=== PATIENT | female | born 1945 | race Caucasian/White ===

== ENCOUNTER → 2016-11-24 | Outpatient (CLI) | payer MEDICARE, OTHER ==
[~2016-11-24] MED LIST: ASP81TEC PO; MECL25TA56 PO; MOME15CR17 TP; MULT-608 PO; OMG1KC PO; PRD10T PO; calcium PO
--- OUTSIDE RECORDS SUMMARY | 2016-11-24 08:48 | XMS REPORT | Continuity of Care Document ---
Author Author [facility] Organization [facility] Address Unknown Phone Unavailable Care Team Providers Care Clinical Rehab Specialist Name Role Phone PCP Unavailable Source Comments Some departments are not documenting in the electronic medical record. If you do not see the information that you expected, contact Release of Information in the Health Information Management department at [phone] for further assistance in locating additional records.[facility] Active Allergies and Adverse Reactions Allergen Noted Date Severity Reactions Comments Contrast Dye Iv, Iodine 05/24/2014 UNKNOWN Containing Current Medications Prescription Sig. Disp. Refills Start End Date Status Date CALCIUM CITRATE (CITRACAL Take 1,260 mg by mouth. Active PO) cholecalciferol (Vitamin Take 1,000 Units by mouth Active D3) (VITAMIN D-3) 1,000 daily. units tablet aspirin EC 81 mg tablet Take 81 mg by mouth Active daily. meclizine (ANTIVERT) 25 Take 25 mg by mouth three Active mg tablet times daily as needed. triamterene-hydrochloroth Take 1 Cap by mouth every 90 Cap 3 05/24/20 Active iazide (DYAZIDE) 37.5-25 morning. 14 mg capsule BETAHISTINE HCL Take 16 mg by mouth three 360 g 5 07/03/20 Active (BETAHISTINE (BULK)) 100 times daily. 14 % powd Active Problems Problem Noted Date Labyrinthitis of left ear 07/03/2014 Social History Tobacco Use Types Packs/Day Years Used Date Never Smoker Smokeless Tobacco: Never Used Last Filed Vital Signs Vital Sign Reading Time Taken Blood Pressure 133/71 07/03/2014 11:27 AM CDT Pulse 68 07/03/2014 11:27 AM CDT Temperature - - Respiratory Rate - - Height 1.549 m (5' 1") 07/03/2014 11:27 AM CDT Weight 51.801 kg (114 lb 3.2 oz) 07/03/2014 11:27 AM CDT Body Mass Index 21.59 07/03/2014 11:27 AM CDT Oxygen Saturation - - Plan of Care Health Maintenance Due Date Last Done Comments Physical (Comprehensive) 01/18/1952 Exam Pertussis Vaccine 01/18/1955 Tetanus Vaccine 01/18/1961 Breast Cancer Screening 1984 Colorectal Cancer 01/18/1994 Screening Shingles Vaccine 2004 Osteoporosis Screening 01/18/2009 Prevnar/Pneumovax (#1) 01/18/2009 Influenza Vaccine 07/17/2016 Results from Last 3 Months Not on file
--- NOTE | 2016-11-24 10:30 | Diagnostic Imaging Report ---
EXAMINATION: Left breast ultrasound. Technique: All four quadrants and the retroareolar region were examined on this study. INDICATION: Asymmetry along the central aspect of the left MLO view. FINDINGS: Unremarkable breast parenchyma with no focal lesion. IMPRESSION: Unremarkable exam. 6 months followup left breast mammogram to ensure stability or resolution of the likely summation artifact asymmetry is recommended. BI-RADS 3. ACR BI-RADS Category 3: Probably benign findings. Dictated by: Dictated on workstation # [id number]
--- NOTE | 2016-11-24 20:06 | Diagnostic Imaging Report ---
Left breast diagnostic mammogram. The current study was also evaluated with a Computer Aided Detection (CAD) system. INDICATION: Asymmetry along the central aspect of the left MLO view. FINDINGS: There is a no definite underlying lesion identified on focal compression views. IMPRESSION: No definite underlying lesion is seen with persistent densities could be summation artifact of parenchyma. Ultrasound evaluation pending. ACR BI-RADS Category 0: Incomplete. (Needs additional imaging evaluation). Result letter will be mailed to the patient. Note: At least 10% of breast cancer is not imaged by mammography. Dictated by: Dictated on workstation # [id number]
== END ==
LOC: RAD 08:44
PROVIDERS: ATTEND Family Medicine
DX: R92.8 Other abnormal and inconclusive findings on diagnostic imaging of breast (principal)
CPT/HCPCS: 76641

== ENCOUNTER → 2017-04-02 | Outpatient (CLI) | payer MEDICARE, OTHER ==
--- NOTE | 2017-04-02 19:05 | Diagnostic Imaging Report ---
EXAMINATION: DEXA scan. INDICATION: Osteopenia, TECHNIQUE: Bone mineral density estimated based on dual energy radiography over the lumbar spine and femoral necks, was performed. FINDINGS: The lumbar spine T-score is not obtained due to lumbar spine hardware. The right femoral neck T-score is -2.3 and on the left side is -2.0. The average is -2.1 and this is not significantly changed from the 2015 exam. IMPRESSION: Osteopenia. Dictated by: Dictated on workstation # [id number]
== END ==
LOC: RAD 09:32
PROVIDERS: ATTEND Family Medicine
DX: M85.88 Other specified disorders of bone density and structure, other site (principal)
CPT/HCPCS: 77080

== ENCOUNTER → 2017-04-22 | Outpatient (CLI) | payer MEDICARE, OTHER ==
--- NOTE | 2017-04-22 14:39 | Diagnostic Imaging Report ---
EXAMINATION: Left breast diagnostic mammogram with a Computer Aided Detection (CAD) system. INDICATION: Asymmetry along the central aspect of the left MLO view seen on the prior exam of 11/14/2016. FINDINGS: The previously seen asymmetry is less prominent with background dense parenchyma seen. There is no suspicious calcification noted. IMPRESSION: Less prominent asymmetry is likely related to summation artifact of parenchyma. Reevaluation when the patient is due for her bilateral mammogram in October 2017 is recommended. ACR BI-RADS Category 3: Probably benign findings. Result letter will be mailed to the patient. Note: At least 10% of breast cancer is not imaged by mammography. Dictated by: Dictated on workstation # [id number]
== END ==
LOC: RAD 07:47
PROVIDERS: ATTEND Family Medicine
DX: R92.8 Other abnormal and inconclusive findings on diagnostic imaging of breast (principal)

== ENCOUNTER → 2017-11-17 | Outpatient (CLI) | payer MEDICARE, OTHER ==
--- NOTE | 2017-11-17 08:56 | Diagnostic Imaging Report ---
INDICATION: Six-month followup. Comparison made with prior examination 04/22/2017, 11/14/2016 and 11/13/2015. The current study was also evaluated with a Computer Aided Detection (CAD) system. FINDINGS: There is a moderate amount of residual fibroglandular tissue bilaterally. There is unchanged well-circumscribed mass in the right breast. There are a few benign type calcifications. There is no new dominant mass, spiculated lesion or suspicious calcifications identified. IMPRESSION: Category 2 benign ACR BI-RADS Category 2: Benign findings. Result letter will be mailed to the patient. Note: At least 10% of breast cancer is not imaged by mammography. Dictated by: Dictated on workstation # [id number]
== END ==
LOC: RAD 08:04
PROVIDERS: ATTEND Family Medicine
DX: N63.10 Unspecified lump in the right breast, unspecified quadrant (principal); N63.20 Unspecified lump in the left breast, unspecified quadrant
CPT/HCPCS: 77066

== ENCOUNTER 2017-12-18 11:37 | Emergency (ER) | payer MEDICARE, OTHER ==
[~2017-12-18] VITALS: Ht 154.9 cm; Wt 49.0 kg
--- NOTE | 2017-12-18 12:08 | Diagnostic Imaging Report ---
INDICATION: Shortness of breath and indigestion. TIME OF EXAM: 11:58 AM Correlation is made with prior study from 02/02/2015. FINDINGS: The heart size is normal. The pulmonary vascularity is unremarkable. The lungs are clear. No infiltrate, effusion or pneumothorax is detected. IMPRESSION: No acute cardiopulmonary process is detected. Dictated by: Dictated on workstation # [id number]
[2017-12-18] MEDS ORDERED: LIDOCAINE 2% VISCOUS 15 ML UDC PO ONE (12:15)
[2017-12-18] MEDS ORDERED: ANTACID SUSP 30 ML UDC (MYLANTA) PO ONE (12:15)
--- NOTE | 2017-12-18 12:33 | ED General ---
General Chief Complaint: General Problems/Pain Stated Complaint: POSS SOMETHING CAUGHT IN THROAT/SOB Nursing Triage Note: LAST NIGHT WAS EATING FELT LIKE FOOD WAS NOT GOING DOWN HAS ATE AND DRANK SINCE ALSO FEELING SOA AFTER EPISODE IN NO DISTRESS ON ADMIT. Nursing Sepsis Screen: No Definite Risk Source of Information: Patient Exam Limitations: No Limitations History of Present Illness Date Seen by Provider: Dec 18, 2017 Time Seen by Provider: 12:31 Initial Comments To ER with reports of sensation of foreign body in the throat. She states that she was eating meatloaf last night when she felt as if something got stuck about 30 minutes later she had some heartburn and acid reflux. She was also bit short of breath. She states she's been having these episodes but more frequently over the past few weeks of feeling as though food gets caught in her esophagus. She has had an EGD done but this was about 8 years ago. She is concerned she may have aspirated food in her lungs. She is a very anxious individual. She has been able to swallow without vomiting or regurgitation since last night. Timing/Duration: 1-2 Days Severity: Moderate Allergies and Home Medications Allergies Coded Allergies: codeine (Unverified Allergy, Unknown, 02/02/15) Uncoded Allergies: CT CONTRAST (Allergy, Unknown, 02/02/15) Home Medications Aspirin 81 Mg Tabec, 81 MG PO DAILY, (Reported) Meclizine Hcl 25 Mg Tablet, 1 EACH PO TID - QID PRN, #30 Prescribed by: MARIO COREA on 12/09/13 0657 Mometasone Furoate 15 Gm Cream..g., 0 TP TID, #1 Prescribed by: BIENVENIDO GUARDADO on 02/06/16 0617 Multivitamins 1 Tab Tablet, 1 TAB PO DAILY, (Reported) Prednisone 10 Mg Tab, 40 MG PO DAILY, #12 Prescribed by: BIENVENIDO GUARDADO on 02/06/16 0617 [calcium] , 4 TAB PO DAILY, (Reported) Constitutional: see HPI, No chills, No fever EENTM: see HPI Respiratory: see HPI, cough Cardiovascular: no symptoms reported Genitourinary: no symptoms reported Skin: no symptoms reported Psychiatric/Neurological: No Symptoms Reported Past Dwwtban-Tgggex-Hfgebw Hx Patient Social History Alcohol Use: Occasionally Uses Recreational Drug Use: No Smoking Status: Never a Smoker Recent Foreign Travel: No Contact w/Someone Who Travel: No Recent Infectious Disease Expo: No Immunizations Up To Date Date of Pneumonia Vaccine: Nov 21, 2011 Date of Influenza Vaccine: Aug 16, 2014 Surgeries History of Surgeries: Yes (EXP LAP WITH BILATERAL OVARIAN CYST REMOVAL; BACK SURGERY) Surgeries: Abdominal, Appendectomy, Orthopedic Respiratory History of Respiratory Disorde: No Cardiovascular History of Cardiac Disorders: No Neurological History of Neurological Disord: No Reproductive System Hx Reproductive Disorders: Yes Female Reproductive Disorders: Endometriosis, Ovarian Cyst Gastrointestinal History of Gastrointestinal Di: Yes Gastrointestinal Disorders: Gastroesophageal Reflux, Irritable Bowel Musculoskeletal History of Musculoskeletal Dis: Yes (NO BACK PROBLEMS SINCE BACK SURGERY) Musculoskeletal Disorders: Osteoporosis Endocrine History of Endocrine Disorders: No Cancer History of Cancer: No Psychosocial History of Psychiatric Problem: No Integumentary History of Skin or Integumenta: No Blood Transfusions History of Blood Disorders: No Adverse Reaction to a Blood Tr: No Family Medical History Family Medial History: Cancer Chest pain Family history: Allergy Family history: Cardiovascular disease Family history: Gastrointestinal disease Heart disease Myocardial infarction Visual impairment No Family History of: Abdominal aortic aneurysm Wilfrido's disease Alcoholism Aphasia Cancer of colon Cataract Congestive heart failure Cystic fibrosis Dementia Dysphagia Family history: Alzheimer's disease Family history: Arthritis Family history: Asthma Family history: Breast disease Family history: Coronary thrombosis Family history: Diabetes mellitus Family history: Glaucoma Family history: Hypertension Family history: Osteoporosis Family history: Thyroid disorder Headache Hearing loss Hereditary disease History of - anemia History of - disorder History of - respiratory disease History of drug abuse Human immunodeficiency virus (HIV) seropositivity Hypercholesterolemia Infertile Kidney disease Malignant neoplasm of lung Parkinson's disease Prostate cancer Psychotic disorder Seizure disorder Stroke Tuberculosis Physical Exam Vital Signs Vital Sign - Last 12Hours 12/18/17 11:43 Temp 96.8 Pulse 69 Resp 18 B/P (MAP) 164/78 (106) Pulse Ox 100 O2 Delivery Room Air Capillary Refill : Less Than 3 Seconds General Appearance: No Apparent Distress, WD/WN, Anxious Eyes: Bilateral Eye Normal Inspection, Bilateral Eye PERRL, Bilateral Eye EOMI HEENT: PERRL/EOMI, TMs Normal Neck: Full Range of Motion, Normal Inspection Respiratory: Normal Breath Sounds, No Accessory Muscle Use, No Respiratory Distress Cardiovascular: Regular Rate, Rhythm, Normal Peripheral Pulses Gastrointestinal: Non Tender, Soft Extremity: Normal Capillary Refill, Normal Inspection Neurologic/Psychiatric: Alert, Oriented x3 Skin: Normal Color, Warm/Dry Progress/Results/Core Measures Suspected Sepsis Recent Fever Within 48 Hours: No Infection Criteria Present: None New/Unexplained Altered Menta: No Sepsis Screen: No Definite Risk Sepsis Diagnosis: SIRS Temperature:96.8 Pulse: 69 Respiratory Rate: 18 Laboratory Tests 12/18/17 12:37: White Blood Count 8.9 Blood Pressure 164 /78 Mean: 106 Laboratory Tests 12/18/17 12:37: Creatinine 1.02, Platelet Count 279, Total Bilirubin 1.3H Results/Orders Lab Results Laboratory Tests Test 12/18/17 12:37 Range/Units White Blood Count 8.9 4.3-11.0 10^3/uL Red Blood Count 4.15 L 4.35-5.85 10^6/uL Hemoglobin 12.9 11.5-16.0 G/DL Hematocrit 38 35-52 % Mean Corpuscular Volume 92 80-99 FL Mean Corpuscular Hemoglobin 31 25-34 PG Mean Corpuscular Hemoglobin Concent 34 32-36 G/DL Red Cell Distribution Width 13.5 10.0-14.5 % Platelet Count 279 130-400 10^3/uL Mean Platelet Volume 10.3 7.4-10.4 FL Neutrophils (%) (Auto) 58 42-75 % Lymphocytes (%) (Auto) 33 12-44 % Monocytes (%) (Auto) 8 0-12 % Eosinophils (%) (Auto) 1 0-10 % Basophils (%) (Auto) 0 0-10 % Neutrophils # (Auto) 5.2 1.8-7.8 X 10^3 Lymphocytes # (Auto) 3.0 1.0-4.0 X 10^3 Monocytes # (Auto) 0.7 0.0-1.0 X 10^3 Eosinophils # (Auto) 0.1 0.0-0.3 10^3/uL Basophils # (Auto) 0.0 0.0-0.1 10^3/uL Sodium Level 141 135-145 MMOL/L Potassium Level 3.8 3.6-5.0 MMOL/L Chloride Level 105 98-107 MMOL/L Carbon Dioxide Level 24 21-32 MMOL/L Anion Gap 12 5-14 MMOL/L Blood Urea Nitrogen 16 7-18 MG/DL Creatinine 1.02 0.60-1.30 MG/DL Estimat Glomerular Filtration Rate 53 BUN/Creatinine Ratio 16 Glucose Level 87 70-105 MG/DL Calcium Level 10.1 8.5-10.1 MG/DL Total Bilirubin 1.3 H 0.1-1.0 MG/DL Aspartate Amino Transf (AST/SGOT) 23 5-34 U/L Alanine Aminotransferase (ALT/SGPT) 16 0-55 U/L Alkaline Phosphatase 72 40-136 U/L Total Protein 7.1 6.4-8.2 GM/DL Albumin 4.3 3.2-4.5 GM/DL My Orders Orders - TOMAS EWING APRN Antacid Suspension (Mylanta Suspension (12/18/17 12:15) Lidocaine 2% Viscous 15 Ml (Xylocaine Vi (12/18/17 12:15) Troponin I (12/18/17 12:29) Ekg Tracing (12/18/17 12:29) Medications Given in ED Current Medications Medications Dose Ordered Sig/Patience Route Start Time Stop Time Status Last Admin Dose Admin Al Hydrox/Mg Hydrox/Simethicone 30 ml ONCE ONCE PO 12/18/17 12:15 12/18/17 12:16 DC 12/18/17 12:24 30 ML Lidocaine HCl 15 ml ONCE ONCE PO 12/18/17 12:15 12/18/17 12:16 DC 12/18/17 12:24 15 ML Vital Signs/I&O Vital Sign - Last 12Hours 12/18/17 11:43 Temp 96.8 Pulse 69 Resp 18 B/P (MAP) 164/78 (106) Pulse Ox 100 O2 Delivery Room Air Capillary Refill : Less Than 3 Seconds Blood Pressure Mean: 106 Departure Communication (Admissions) Progress Notes 1310-patient feels better at this time after the GI cocktail. She continues to be able to swallow without regurgitation Impression Impression: Primary Impression: Esophageal pain Disposition: HOME, SELF-CARE Condition: Improved Departure-Patient Inst. Decision time for Depature: 13:11 Referrals: AG COREA MD (PCP/Family) Primary Care Physician Patient Instructions: NO INSTRUCTIONS GIVEN Add. Discharge Instructions: 1. Prilosec as directed for acid reduction. Follow-up with your regular doctor within 1 week for recheck and possible referral for repeat EGD 2. You may use zzzx-obo-fflbjor Maalox or Mylanta to help with this discomfort if it returns. 3. Return to ER for any worsening pain, shortness of breath or other concerns. Scripts Omeprazole (Omeprazole) 40 Mg Capsule. 40 MG PO DAILY, #30 CAP Prov: TOMAS EWING APRN 12/18/17 TOMAS EWING APRN Dec 18, 2017 12:33
[2017-12-18 12:45] LABS: BASOPHILS % (AUTO) 0 % (0-10); EOSINOPHILS # (AUTO) 0.1 10^3/uL (0.0-0.3); EOSINOPHILS % (AUTO) 1 % (0-10); HEMATOCRIT 38 % (35-52); HEMOGLOBIN 12.9 G/DL (11.5-16.0); LYMPHOCYTES % (AUTO) 33 % (12-44); MEAN CORPUSCULAR HEMOGLOBIN 31 PG (25-34); MEAN CORPUSCULAR HGB CONC 34 G/DL (32-36); MEAN CORPUSCULAR VOLUME 92 FL (80-99); MEAN PLATELET VOLUME 10.3 FL (7.4-10.4); MONOCYTES # (AUTO) 0.7 X 10^3 (0.0-1.0); MONOCYTES % (AUTO) 8 % (0-12); NEUTROPHILS # (AUTO) 5.2 X 10^3 (1.8-7.8); NEUTROPHILS % (AUTO) 58 % (42-75); PLATELET COUNT 279 10^3/uL (130-400); RED BLOOD COUNT 4.15 10^6/uL (4.35-5.85); RED CELL DISTRIBUTION WIDTH 13.5 % (10.0-14.5); WHITE BLOOD COUNT 8.9 10^3/uL (4.3-11.0)
[2017-12-18 13:09] LABS: ALANINE AMINOTRANSFERASE 16 U/L (0-55); ALBUMIN 4.3 GM/DL (3.2-4.5); ALKALINE PHOSPHATASE 72 U/L (40-136); BILIRUBIN,TOTAL 1.3 MG/DL (0.1-1.0); BUN/CREATININE RATIO 16; CALCIUM 10.1 MG/DL (8.5-10.1); CARBON DIOXIDE 24 MMOL/L (21-32); CHLORIDE 105 MMOL/L (98-107); CREATININE SERUM 1.02 MG/DL (0.60-1.30); GFR ESTIMATED 53; GLUCOSE 87 MG/DL (70-105); POTASSIUM 3.8 MMOL/L (3.6-5.0); SODIUM 141 MMOL/L (135-145); TOTAL PROTEIN 7.1 GM/DL (6.4-8.2)
[2017-12-18] MEDS ORDERED: OMEP40CA36 PO (13:13)
[2017-12-18 13:40] VITALS: BP 160/77
[2017-12-22] MEDS ORDERED: PANT40TA2 PO (11:47)
== END 2017-12-18 13:39 | disposition home or self-care (01) ==
LOC: EDUNIT# 11:37 → ER 11:39
DX: K22.8 Other specified diseases of esophagus (principal); K21.9 Gastro-esophageal reflux disease without esophagitis; M81.0 Age-related osteoporosis without current pathological fracture; Z87.42 Personal history of other diseases of the female genital tract; Z90.49 Acquired absence of other specified parts of digestive tract; Z79.82 Long term (current) use of aspirin; Z88.5 Allergy status to narcotic agent; Z91.041 Radiographic dye allergy status
CPT/HCPCS: 36415; 71045; 80053; 84484; 85025

== ENCOUNTER 2017-12-20 04:16 | Emergency (ER) | payer MEDICARE, OTHER ==
[~2017-12-20] VITALS: Ht 154.9 cm; Wt 45.4 kg
[~2017-12-20 04:16] MED LIST changes: +OMEP40CA36 PO
[2017-12-20] MEDS ORDERED: NS IV 500 ML 500 ML IV ONE (04:24)
[2017-12-20] MEDS ORDERED: RT-ALBUTEROL/IPRATROPIUM 3 ML (DUONEB) VIAL INH ONE (04:30)
--- NOTE | 2017-12-20 04:34 | ED Respiratory ---
General Stated Complaint: SOA Source: patient, spouse Exam Limitations: no limitations History of Present Illness Date Seen by Provider: Dec 20, 2017 Time Seen by Provider: 04:25 Initial Comments Patient resistance to ER by private conveyance with her significant other and a chief complaint that for the past 3-4 days after she had a meal she said she had a hard time digesting a meal which she described as trying to belch but couldn't as well as having some bloating sensation. She thought it got a little better that night but it came back the next day so she came to the ER to have it worked up and they thought there is something wrong with her esophagus. Again tonight she woke up just prior to arrival with some diarrhea and feeling of shortness of breath. She has no coronary history or history of COPD/asthma or other lung disease. She says she's felt like she needs to cough but cannot cough. She has no wheezing or stridor. She does not use any medications except for vitamins area she says she is otherwise healthy. She did have a surgery on her hand a few weeks ago. She denies any trauma. Her diarrhea did not appear black tarry or bright red blood. She has had her appendix out. She denies nausea. Her previous ER visit shows she had an EGD done about 8 years ago. No history of esophageal dilation at that time. According to the history it Seemed like she was concerned she might have got some meat loaf stuck in her throat with acid reflux and heartburn. Laboratory workup was unremarkable. She was given a GI cocktail which seemed to resolve her symptoms. She was directed to use antacids and follow up with her primary care physician for further management. [address] Sultana for gastroesophageal reflux. No evidence of Cm's esophagus. Small hiatal hernia without evidence of erosive esophagitis. Antrum with aspirin related gastropathy noted. Pathology noted mild gastritis and no H. pylori. Allergies and Home Medications Allergies Coded Allergies: codeine (Unverified Allergy, Unknown, 02/02/15) Uncoded Allergies: CT CONTRAST (Allergy, Unknown, 02/02/15) Home Medications Aspirin 81 Mg Tabec, 81 MG PO DAILY, (Reported) Meclizine Hcl 25 Mg Tablet, 1 EACH PO TID - QID PRN, #30 Prescribed by: MARIO COREA on 12/09/13 0657 Mometasone Furoate 15 Gm Cream..g., 0 TP TID, #1 Prescribed by: BIENVENIDO GUARDADO on 02/06/16 0617 Multivitamins 1 Tab Tablet, 1 TAB PO DAILY, (Reported) Omeprazole 40 Mg Capsule.dr, 40 MG PO DAILY, #30 Prescribed by: TOMAS EWING on 12/18/17 1313 Prednisone 10 Mg Tab, 40 MG PO DAILY, #12 Prescribed by: BIENVENIDO GUARDADO on 02/06/16 0617 [calcium] , 4 TAB PO DAILY, (Reported) Constitutional: No chills, No diaphoresis, No fever, No malaise EENTM: No ear pain, No eye pain Respiratory: see HPI, cough, No phlegm, short of breath, No stridor, No wheezing Cardiovascular: No chest pain, No Hx of Intervention, No palpitations, No syncope, No vascular heart diseas Gastrointestinal: abdominal pain (epigastric), No constipation, diarrhea, No nausea Genitourinary: No discharge, No dysuria Musculoskeletal: No back pain, No joint pain Skin: No pruritus, No rash Psychiatric/Neurological: Denies Headache, Denies Numbness, Denies Paresthesia Past Yzyqhvb-Czqmwk-Rchypw Hx Patient Social History Alcohol Use: Occasionally Uses Recreational Drug Use: No Smoking Status: Never a Smoker Immunizations Up To Date Date of Pneumonia Vaccine: Nov 21, 2011 Date of Influenza Vaccine: Aug 16, 2014 Surgeries History of Surgeries: Yes (EXP LAP WITH BILATERAL OVARIAN CYST REMOVAL; BACK SURGERY) Surgeries: Abdominal, Appendectomy, Orthopedic Respiratory History of Respiratory Disorde: No Cardiovascular History of Cardiac Disorders: No Neurological History of Neurological Disord: No Reproductive System Hx Reproductive Disorders: Yes Female Reproductive Disorders: Endometriosis, Ovarian Cyst Gastrointestinal History of Gastrointestinal Di: Yes Gastrointestinal Disorders: Gastroesophageal Reflux, Irritable Bowel Musculoskeletal History of Musculoskeletal Dis: Yes (NO BACK PROBLEMS SINCE BACK SURGERY) Musculoskeletal Disorders: Osteoporosis Endocrine History of Endocrine Disorders: No Cancer History of Cancer: No Psychosocial History of Psychiatric Problem: No Integumentary History of Skin or Integumenta: No Blood Transfusions History of Blood Disorders: No Adverse Reaction to a Blood Tr: No Family Medical History Family Medial History: Cancer Chest pain Family history: Allergy Family history: Cardiovascular disease Family history: Gastrointestinal disease Heart disease Myocardial infarction Visual impairment No Family History of: Abdominal aortic aneurysm Damascus's disease Alcoholism Aphasia Cancer of colon Cataract Congestive heart failure Cystic fibrosis Dementia Dysphagia Family history: Alzheimer's disease Family history: Arthritis Family history: Asthma Family history: Breast disease Family history: Coronary thrombosis Family history: Diabetes mellitus Family history: Glaucoma Family history: Hypertension Family history: Osteoporosis Family history: Thyroid disorder Headache Hearing loss Hereditary disease History of - anemia History of - disorder History of - respiratory disease History of drug abuse Human immunodeficiency virus (HIV) seropositivity Hypercholesterolemia Infertile Kidney disease Malignant neoplasm of lung Parkinson's disease Prostate cancer Psychotic disorder Seizure disorder Stroke Tuberculosis Physical Exam Vital Signs Vital Sign - Last 12Hours 12/20/17 04:38 Temp 96.4 Pulse 85 Resp 20 B/P (MAP) 182/78 (112) Pulse Ox 99 O2 Delivery Room Air Capillary Refill : General Appearance: WD/WN, mild distress Eyes: Bilateral Eye Normal Inspection, Bilateral Eye PERRL, Bilateral Eye EOMI HEENT: PERRL/EOMI, normal ENT inspection, pharynx normal (oral mucosa is moist) Neck: full range of motion, normal inspection Respiratory: chest non-tender, lungs clear, no respiratory distress, no accessory muscle use, decreased breath sounds Cardiovascular: normal peripheral pulses, regular rate, rhythm, no edema, no JVD Gastrointestinal: normal bowel sounds, soft, No distended, No rebound, tenderness (epigastric. moderately pos Ricketts's sign.) Extremities: normal inspection, no pedal edema, normal capillary refill Neurologic/Psychiatric: alert, normal mood/affect, oriented x 3, other ( anxious appearing) Skin: normal color, warm/dry Focused Exam Evaluation Lactate Level Laboratory Tests 12/20/17 04:26: Lactic Acid Level 1.41 Lactic Acid Level Laboratory Tests Test 12/20/17 04:26 Lactic Acid Level 1.41 MMOL/L (0.50-2.00) Progress/Results/Core Measures Suspected Sepsis SIRS Temperature: Pulse: Respiratory Rate: Laboratory Tests 12/20/17 04:26: White Blood Count 8.8 Blood Pressure / Mean: Laboratory Tests 12/20/17 04:26: Lactic Acid Level 1.41 Laboratory Tests 12/20/17 04:26: Creatinine 1.12, Platelet Count 298, Total Bilirubin 1.5H Results/Orders Lab Results Laboratory Tests Test 12/20/17 04:26 Range/Units White Blood Count 8.8 4.3-11.0 10^3/uL Red Blood Count 4.42 4.35-5.85 10^6/uL Hemoglobin 13.6 11.5-16.0 G/DL Hematocrit 41 35-52 % Mean Corpuscular Volume 92 80-99 FL Mean Corpuscular Hemoglobin 31 25-34 PG Mean Corpuscular Hemoglobin Concent 34 32-36 G/DL Red Cell Distribution Width 13.5 10.0-14.5 % Platelet Count 298 130-400 10^3/uL Mean Platelet Volume 9.9 7.4-10.4 FL Neutrophils (%) (Auto) 56 42-75 % Lymphocytes (%) (Auto) 35 12-44 % Monocytes (%) (Auto) 7 0-12 % Eosinophils (%) (Auto) 2 0-10 % Basophils (%) (Auto) 0 0-10 % Neutrophils # (Auto) 4.9 1.8-7.8 X 10^3 Lymphocytes # (Auto) 3.1 1.0-4.0 X 10^3 Monocytes # (Auto) 0.6 0.0-1.0 X 10^3 Eosinophils # (Auto) 0.1 0.0-0.3 10^3/uL Basophils # (Auto) 0.0 0.0-0.1 10^3/uL D-Dimer 0.70 H 0.00-0.49 UG/ML Sodium Level 139 135-145 MMOL/L Potassium Level 3.5 L 3.6-5.0 MMOL/L Chloride Level 104 98-107 MMOL/L Carbon Dioxide Level 21 21-32 MMOL/L Anion Gap 14 5-14 MMOL/L Blood Urea Nitrogen 18 7-18 MG/DL Creatinine 1.12 0.60-1.30 MG/DL Estimat Glomerular Filtration Rate 48 BUN/Creatinine Ratio 16 Glucose Level 105 70-105 MG/DL Lactic Acid Level 1.41 0.50-2.00 MMOL/L Calcium Level 10.1 8.5-10.1 MG/DL Magnesium Level 2.2 1.8-2.4 MG/DL Total Bilirubin 1.5 H 0.1-1.0 MG/DL Aspartate Amino Transf (AST/SGOT) 26 5-34 U/L Alanine Aminotransferase (ALT/SGPT) 16 0-55 U/L Alkaline Phosphatase 71 40-136 U/L Troponin I < 0.30 <0.30 NG/ML C-Reactive Protein High Sensitivity 0.10 0.00-0.50 MG/DL B-Type Natriuretic Peptide < 10.0 <100.0 PG/ML Total Protein 7.2 6.4-8.2 GM/DL Albumin 4.3 3.2-4.5 GM/DL Micro Results Microbiology 12/20/17 Influenza Types A,B Antigen (MELIA) - Final, Complete My Orders Orders - AAMIR BURRELL BNP (12/20/17 04:24) Cbc With Automated Diff (12/20/17 04:24) Comprehensive Metabolic Panel (12/20/17 04:24) Hs C Reactive Protein (12/20/17 04:24) Fibrin Degradation Products (12/20/17 04:24) Lactic Acid Analyzer (12/20/17 04:24) Magnesium (12/20/17 04:24) Troponin I (12/20/17 04:24) Influenza A And B Antigens (12/20/17 04:24) Chest Pa/Lat (2 View) (12/20/17 04:24) Albuterol/Ipra Inhalation Soln (Duoneb I (12/20/17 04:30) Saline Lock/Iv-Start (12/20/17 04:24) Ns Iv 500 Ml (Sodium Chloride 0.9%) (12/20/17 04:24) Svn Sm Volume Nebulizer Rt-Rfs (12/20/17 04:24) Us Gallbladder [id number] (12/20/17 04:57) Medications Given in ED Current Medications Medications Dose Ordered Sig/Patience Route Start Time Stop Time Status Last Admin Dose Admin Albuterol/ Ipratropium 3 ml ONCE ONCE INH 12/20/17 04:30 12/20/17 04:31 DC 12/20/17 04:49 3 ML Sodium Chloride 500 ml @ 0 mls/hr Q0M ONCE IV 12/20/17 04:24 12/20/17 04:27 DC 12/20/17 04:37 0 MLS/HR Vital Signs/I&O Vital Sign - Last 12Hours 12/20/17 12/20/17 04:38 04:50 Temp 96.4 Pulse 85 Resp 20 B/P (MAP) 182/78 (112) Pulse Ox 99 93 O2 Delivery Room Air Room Air Capillary Refill : Progress Note #1: Time: 04:44 Progress Note No clinical evidence on the vital signs, physical exam or really in the history to support this is related to her lungs. She was not anemic 2 days ago. I'm concerned that her symptoms may be related to anxiety secondary to her other symptoms of diarrhea, bloating, belching etc. It could be that the origin of her problem is below the diaphragm such as gallbladder or pancreas. She does drink alcohol occasionally. She has a history of gastritis seen on EGD from 6 years ago. We'll look her lungs over with an x-ray, influenza and blood work but I suspect this is not the origin of her symptoms. RUQ US. Wells PE score is 4.5, intermediate risk. D-dimer is 0.7. This is below the age adjusted cut off of 0.73 g per mL. She also has an allergy to CT contrast. Progress Note #2: Time: 07:55 Progress Note Patient's symptoms have abated. Nothing in the lab and clinical exam or imaging so far is emergent. We'll make recommendation that she consider EGD and further workup of her gallbladder. Bilirubin is only mildly elevated. Alkaline phosphatase normal. She can follow-up with her primary care physician Thursday or she can call Dr. Sultana since he's done her scopes in the past and see if he would still be willing to scope her. This is been discussed with the patient and she has had her questions answered. ECG Initial ECG Impression Date: Dec 20, 2017 Initial ECG Impression Time: 04:23 Initial ECG Rate: 77 Initial ECG Rhythm: Normal Sinus Initial ECG Intervals: Normal Initial ECG Impression: Normal Initial ECG Comparisson: No Previous ECG Available Comment No T-wave elevation or depression. Diagnostic Imaging Diagonstic Imaging: Xray Plain Films/CT/US/NM/MRI: chest (2v) Comments No acute cardiopulmonary processes noted. [facility] [place], [place] NAME: RIK FLORES MED REC#: [id number] PT STATUS: REG ER : 1945 PHYSICIAN: AAMIR BURRELL MD ADMIT DATE: 12/20/17/ER Draft Date of Exam:12/20/17 CHEST PA/LAT (2 VIEW) INDICATION: Cough and congestion COMPARISON: 12/18/2017 FINDINGS: The lungs are clear. The heart size and vascularity are within normal limits. There is symmetrical air trapping, chronic. Hilar and mediastinal contours are normal. IMPRESSION: Clear hyperexpanded lungs otherwise. Dictated on workstation # [id number] Dict: 12/20/1716 Trans: 12/20/1742 [facility] [phone] Interpreted by: WILLIAM CABA Electronically signed by: Reviewed: Reviewed by Me Diagonstic Imaging: Ultrasound Plain Films/CT/US/NM/MRI: abdomen (RUQ) Comments VIA [place], [place] NAME: RIK FLORES [facility] REC#: [id number] PT STATUS: REG ER : 1945 PHYSICIAN: AAMIR BURRELL MD ADMIT DATE: 12/20/17/ER Draft Date of Exam:12/20/17 US GALLBLADDER [id number] PROCEDURE: US Gallbladder. TECHNIQUE: Multiple real-time grayscale images were obtained over the right upper quadrant in various projections. INDICATION: Epigastric pain. FINDINGS: The gallbladder appeared unremarkable. There is no echogenic or shadowing stone, no wall thickening, no pericholecystic fluid and no bile duct dilatation. There is a right renal cortical cyst without hydronephrosis. Visualized portions of the pancreas are grossly unremarkable but it is largely obscured. No ascites. IMPRESSION: Right renal cyst. No hepatobiliary abnormality. No ascites. Dictated on workstation # [id number] Dict: 12/20/17714 Trans: 12/20/17721 [facility] [id number] Interpreted by: WILLIAM CABA Electronically signed by: Reviewed: Reviewed by Me Departure Impression Impression: Primary Impression: Anxiety attack Additional Impressions: Epigastric abdominal pain of unknown etiology Diarrhea Qualified Codes: R19.7 - Diarrhea, unspecified Disposition: 01 HOME, SELF-CARE Condition: Improved Departure-Patient Inst. Decision time for Depature: 08:02 Referrals: AG COREA MD (PCP/Family) Primary Care Physician Patient Instructions: Acute Abdomen (Belly Pain), Adult (DC) Add. Discharge Instructions: Drink plenty of fluids and use an acid treatment counselor such as the omeprazole or you can switch to Pepcid, ranitidine, Zantac if you prefer something different. Please call your primary care physician in the appointment in the next couple weeks to continue workup of your respiratory and abdominal symptoms. If you feel your breathing is getting out of control and you're getting tingly in the fingers lightheaded or dizzy this may be an anxiety attack and you would benefit from using the Xanax that has been prescribed you as ordered. Please return to the ER if you experience fever, nausea vomiting, dehydration, chest pain, shortness of breath. Copy Copies To 1: AG COREA MD, TITUS J Dec 20, 2017 04:34
[2017-12-20 04:35] LABS: BASOPHILS % (AUTO) 0 % (0-10); EOSINOPHILS # (AUTO) 0.1 10^3/uL (0.0-0.3); EOSINOPHILS % (AUTO) 2 % (0-10); HEMATOCRIT 41 % (35-52); HEMOGLOBIN 13.6 G/DL (11.5-16.0); LYMPHOCYTES # (AUTO) 3.1 X 10^3 (1.0-4.0); LYMPHOCYTES % (AUTO) 35 % (12-44); MEAN CORPUSCULAR HEMOGLOBIN 31 PG (25-34); MEAN CORPUSCULAR HGB CONC 34 G/DL (32-36); MEAN CORPUSCULAR VOLUME 92 FL (80-99); MEAN PLATELET VOLUME 9.9 FL (7.4-10.4); MONOCYTES # (AUTO) 0.6 X 10^3 (0.0-1.0); MONOCYTES % (AUTO) 7 % (0-12); NEUTROPHILS # (AUTO) 4.9 X 10^3 (1.8-7.8); NEUTROPHILS % (AUTO) 56 % (42-75); PLATELET COUNT 298 10^3/uL (130-400); RED BLOOD COUNT 4.42 10^6/uL (4.35-5.85); RED CELL DISTRIBUTION WIDTH 13.5 % (10.0-14.5); WHITE BLOOD COUNT 8.8 10^3/uL (4.3-11.0)
[2017-12-20 05:02] LABS: ALANINE AMINOTRANSFERASE 16 U/L (0-55); ALBUMIN 4.3 GM/DL (3.2-4.5); ALKALINE PHOSPHATASE 71 U/L (40-136); BILIRUBIN,TOTAL 1.5 MG/DL (0.1-1.0); BUN/CREATININE RATIO 16; CALCIUM 10.1 MG/DL (8.5-10.1); CARBON DIOXIDE 21 MMOL/L (21-32); CHLORIDE 104 MMOL/L (98-107); CREATININE SERUM 1.12 MG/DL (0.60-1.30); GFR ESTIMATED 48; GLUCOSE 105 MG/DL (70-105); MAGNESIUM 2.2 MG/DL (1.8-2.4); POTASSIUM 3.5 MMOL/L (3.6-5.0); SODIUM 139 MMOL/L (135-145); TOTAL PROTEIN 7.2 GM/DL (6.4-8.2)
--- NOTE | 2017-12-20 07:23 | Diagnostic Imaging Report ---
PROCEDURE: US Gallbladder. TECHNIQUE: Multiple real-time grayscale images were obtained over the right upper quadrant in various projections. INDICATION: Epigastric pain. FINDINGS: The gallbladder appeared unremarkable. There is no echogenic or shadowing stone, no wall thickening, no pericholecystic fluid and no bile duct dilatation. There is a right renal cortical cyst without hydronephrosis. Visualized portions of the pancreas are grossly unremarkable but it is largely obscured. No ascites. IMPRESSION: Right renal cyst. No hepatobiliary abnormality. No ascites. Dictated by: Dictated on workstation # [id number]
--- NOTE | 2017-12-20 07:42 | Diagnostic Imaging Report ---
INDICATION: Cough and congestion COMPARISON: 12/18/2017 FINDINGS: The lungs are clear. The heart size and vascularity are within normal limits. There is symmetrical air trapping, chronic. Hilar and mediastinal contours are normal. IMPRESSION: Clear hyperexpanded lungs otherwise. Dictated by: Dictated on workstation # [id number]
[2017-12-20 08:18] VITALS: BP 139/71
[2017-12-21] MEDS ORDERED: CALC-987 PO (15:31)
[2017-12-21] MEDS ORDERED: ASPI-999 PO (15:31)
[2017-12-22] MEDS ORDERED: PANT40TA2 PO (11:47)
== END 2017-12-20 08:18 | disposition home or self-care (01) ==
LOC: EDUNIT# 04:16 → ER 04:18
DX: F41.9 Anxiety disorder, unspecified (principal); R10.13 Epigastric pain; R19.7 Diarrhea, unspecified; M81.0 Age-related osteoporosis without current pathological fracture; K21.9 Gastro-esophageal reflux disease without esophagitis; Z87.42 Personal history of other diseases of the female genital tract; Z90.49 Acquired absence of other specified parts of digestive tract; Z79.52 Long term (current) use of systemic steroids; Z79.82 Long term (current) use of aspirin; Z88.5 Allergy status to narcotic agent
CPT/HCPCS: 36415; 71046; 76705; 80053; 83605; 83735; 83880; 84484; 85025; 85379; 86141; 87804; 94640; 96360

== ENCOUNTER 2017-12-21 15:17 | Outpatient (CLI) | payer MEDICARE, OTHER ==
[~2017-12-21] VITALS: Ht 154.9 cm; Wt 45.4 kg
[2017-12-21] MEDS ORDERED: CALC-987 PO (15:31)
[2017-12-21] MEDS ORDERED: ASPI-999 PO (15:31)
[2017-12-22] MEDS ORDERED: PANT40TA2 PO (11:47)
== END 2017-12-21 15:36 ==
LOC: PREOP 15:17
PROVIDERS: ATTEND Surgery
DX: Z01.818 Encounter for other preprocedural examination (principal); R13.10 Dysphagia, unspecified; K21.9 Gastro-esophageal reflux disease without esophagitis; R06.02 Shortness of breath

== ENCOUNTER 2017-12-22 10:47 | Day surgery (SDC) | payer MEDICARE, OTHER ==
[~2017-12-22] VITALS: Ht 154.9 cm; Wt 48.1 kg
[~2017-12-22 10:47] MED LIST changes: +ASPI-999 PO; +CALC-987 PO
[2017-12-22] MEDS ORDERED: NS IV 500 ML 500 ML IV PRN (10:59)
[2017-12-22 11:00] VITALS: BP 102/93
[2017-12-22] MEDS ORDERED: LIDOCAINE JELLY 2% (XYLOCAINE) 5 ML TUBE MM PRN (11:00)
[2017-12-22] MEDS ORDERED: HURRICAINE EXT TUBE (BENZOCAINE) XX PRN (11:00)
[2017-12-22] MEDS ORDERED: NS IV 500 ML 500 ML ONE (11:09)
[2017-12-22] MEDS ORDERED: MIDAZOLAM 2 MG/2 ML (VERSED) VIAL ONE ×3 (11:23→11:24)
[2017-12-22] MEDS ORDERED: LIDOCAINE JELLY 2% (XYLOCAINE) 5 ML TUBE ONE (11:24)
[2017-12-22] MEDS ORDERED: HURRICAINE EXT TUBE (BENZOCAINE) ONE (11:24)
[2017-12-22] MEDS ORDERED: fentaNYL INJECTION 100 MCG/2 ML AMP ONE (11:24)
--- NOTE | 2017-12-22 11:42 | Conscious Sedation/ASA ---
Conscious Sedation Pre-Proced Time Reviewed: 11:40 ASA Class: 2 Airway Mallampati Classification: (chevak appropriate class) I. II. III, IV Lungs Heart ASA score ASA 1: a normal healthy patient ASA 2: a patient with a mild systemic disease (mid diabetes, controlled hypertension, obesity ASA 3: a patient with a severe systemic disease that limits activity (angina , COPD, prior Myocardial infarction) ASA 4: a patient with an incapacitating disease that is a constant threat to life (CHF, renal failure) ASA 5: a moribund patient not expected to survive 24 hrs. (ruptured aneurysm) ASA 6: a declared brain patient whose organs are being harvested. For emergent operations, add the letter E after the classification Grade 2 Sedation Plan: Analgesia, Amnesia, Plan communicated to team members, Discussed options with patient/fam, Discussed risks with patient/fam Note The patient is an appropriate candidate to undergo the planned procedure, sedation, and anesthesia. The patient immediately re-assessed prior to indication. DEANNE BYRNE MD Dec 22, 2017 11:42 am
--- NOTE | 2017-12-22 11:44 | Progress Note-Pre Operative ---
Pre-Operative Progress Note H&P Reviewed The H&P was reviewed, patient examined and no changes noted. Date Seen by Provider: Dec 22, 2017 Time Seen by Provider: 11:40 Date H&P Reviewed: Dec 22, 2017 Time H&P Reviewed: 11:40 Pre-Operative Diagnosis: dysphagia DEANNE BYRNE MD Dec 22, 2017 11:44 am
[2017-12-22] MEDS ORDERED: HYDROcodone/APAP 5 MG/325 MG (LORTAB) TAB PO PRN (11:45)
[2017-12-22] MEDS ORDERED: ACETAMINOPHEN 325 MG TABLET/CAPLET (TYLENOL) PO PRN (11:45)
[2017-12-22] MEDS ORDERED: morphine INJ 10 MG/ML 1ML (SYR OR VIAL) IV PRN (11:45)
[2017-12-22] MEDS: fentaNYL INJECTION 100 MCG/2 ML AMP IVP PRN ×2 (11:45→12:00)
[2017-12-22] MEDS ORDERED: ONDANSETRON 4 MG/2 ML (SDV) Z0FRAN IV PRN (11:45)
[2017-12-22] MEDS ORDERED: PANT40TA2 PO (11:47)
[2017-12-22] MEDS: MIDAZOLAM 2 MG/2 ML (VERSED) VIAL IVP PRN ×3 (11:47→12:12)
--- NOTE | 2017-12-22 11:48 | Discharge Inst-Surgical ---
D/C Lap Instructions-KIDO New, Converted, or Re-Newed RX: RX on Chart Follow Up Appt in 6 weeks Activity as tolerated High Fiber Diet 25g or more per day Avoid Alcohol, Caffeine, Spicy [place] and Acid foods. Drink 64 fluid oz or more of fluids per day. Symptoms to Report: Fever over 101 degree F, Nausea/Vomiting If any problems/questions: Contact your physician or go to Emergency Room DEANNE BYRNE MD Dec 22, 2017 11:48 am
[2017-12-22 12:45] VITALS: BP 141/77
--- NOTE | 2017-12-22 12:45 | Progress Note-Post Operative ---
Post-Operative Progess Note Surgeon (s)/Fly Frame Tender (s) Surgeon DEANNE BYRNE MD Fly Frame Tender: none Pre-Operative Diagnosis dysphagia Post-Operative Diagnosis reflux esophagitis(class B), mild distal esophageal stricture, small HH(1.5cm), mild-mod gastritis. Procedure & Operative Findings Date of Procedure 12/22/17 Procedure Performed/Findings EGD with bx and balloon dilatation. Anesthesia Type CS Estimated Blood Loss Estimated blood loss (mL): minimal Specimens/Packing Specimens Removed GE jxn, antrum DEANNE BYRNE MD Dec 22, 2017 12:45 pm
[2017-12-22 13:15] VITALS: BP 149/83
[2017-12-22 13:34] VITALS: BP 149/83
--- NOTE | 2017-12-22 19:15 | OPERATIVE REPORT ---
DATE OF SERVICE: 12/22/2017 ATTENDING PRIMARY CARE PHYSICIAN: Dr. Adalid Anaya. PREOPERATIVE DIAGNOSIS: Dysphagia. POSTOPERATIVE DIAGNOSES: Reflux esophagitis class B with mild distal esophageal stricture, small hiatal hernia 1 to 1.5 cm in size. Mild to moderate gastritis. Pylorus and duodenum appeared normal with no distal obstructions. PROCEDURE: EGD with biopsy and balloon dilatation. SURGEON: Dr. Byrne. ANESTHESIA: Conscious sedation. ESTIMATED BLOOD LOSS: Minimal. FINDINGS: Reflux esophagitis class B with a distal esophageal stricture, a small hiatal hernia approximately 1 to 1.5 cm in size, mild to moderate severity gastritis with no ulcers, polyps or any neoplasms. Pylorus and duodenum appeared normal with no distal obstructions. DISPOSITION: The patient tolerated the procedure well. INDICATIONS: The patient is a 72-year-old female with dysphagia. She reports that approximately 1 week ago she felt epigastric discomfort followed by substernal chest pressure and shortness of breath. Since that episode, she has had recurrent symptoms related to this dysphagia. She was seen in the Emergency Department and started on Prilosec; however, discontinued the medication. An ultrasound of the gallbladder was also performed on that visit, which was negative. She did have an EGD in 2011, where there was a small hiatal hernia was identified; however, H. pylori negative. DESCRIPTION OF PROCEDURE: The patient was brought to the endoscopy suite, laid in the left lateral decubitus position with the head slightly elevated. After adequate IV pain and sedating medications and conscious sedation anesthesia, the mouthpiece was applied. The endoscope was placed in the mouth, visualizing the pharynx and hypopharyngeal region. Vocal cords, epiglottis and vallecula identified and appeared to be normal. The endoscope was then gently intubated in the esophageal opening esophagus insufflated. Endoscope was then advanced to the first, second and third portions of the esophagus. At the level of the GE junction, a reflux esophagitis class B identified as well as a mild distal esophageal stricture. A biopsy was taken using forceps with visualization of good hemostasis. The endoscope was then advanced to the stomach and the endoscope retroflexed. A small hiatal hernia approximately 1.1 to 1.5 cm in size identified with the stricture identified consistent with a Schatzki's ring. Mild to moderate gastritis was noted. There were no ulcers, polyps or any neoplasms. A biopsy was taken of the antrum with forceps with visualization of good hemostasis. The endoscope was then advanced to the pylorus and the first and second portions of the duodenum, which appeared normal with no distal obstructions. We then decided to proceed with the dilatation of the distal esophageal stricture. A CRE fixed guidewire balloon was placed into the stomach and then drawn back to the area of the stricture. We first proceeded with 3 atmospheres of pressure or 18 mm in circumferential diameter with no resistance. We then proceeded to 4.5 atmospheres of pressure with mild resistance. We then proceeded to 6 atmospheres of pressure or 20 mm in circumferential diameter with mild to moderate resistance and left this in position for approximately 60 seconds. The balloon was then desufflated and removed. No mucosal tears were identified as well as a good hemostasis. The endoscope was then slowly withdrawn while taking a second look and suctioning of residual air with no additional findings. The patient tolerated the procedure well. We will recommend the necessary lifestyle and diet accommodation including small and more frequent meals, avoidance of eating at night as well as head elevation while lying supine. She also needs to avoid caffeinated beverages, spicy, greasy and acidic foods. We will also start her on pantoprazole 40 mg daily. Job ID: [id number] DocumentID: [id number] Dictated Date: 12/22/2017 12:40:58 Public Relations Writer Date: 12/22/2017 19:14:54 Dictated By: DEANNE BYRNE MD
== END 2017-12-22 13:30 | disposition home or self-care (01) ==
LOC: ENDO 10:47
PROVIDERS: ATTEND Surgery
DX: K22.2 Esophageal obstruction (principal); K21.0 Gastro-esophageal reflux disease with esophagitis; K44.9 Diaphragmatic hernia without obstruction or gangrene; K29.70 Gastritis, unspecified, without bleeding; E78.00 Pure hypercholesterolemia, unspecified; F41.9 Anxiety disorder, unspecified; M85.80 Other specified disorders of bone density and structure, unspecified site; M19.91 Primary osteoarthritis, unspecified site; Z79.899 Other long term (current) drug therapy; Z79.82 Long term (current) use of aspirin

== ENCOUNTER → 2017-12-24 | Outpatient (CLI) | payer MEDICARE, OTHER ==
[~2017-12-24] MED LIST changes: +CATHETER FLUSH 10 ML SYR IV PRN; +HYDR-34 PO; +OMEP20TA33 PO; +ONDA8TAB9 PO; +PANT40TA2 PO; +XANAX PO
--- NOTE | 2017-12-24 16:03 | Diagnostic Imaging Report ---
INDICATION: Epigastric and abdominal pain. COMPARISON: None. RADIOPHARMACEUTICAL: 5.28 mCi Choletec IV. FINDINGS: Tracer activity is seen within the liver, gallbladder, bile ducts and bowel is normal. Gallbladder ejection fraction is slightly abnormal at 30%. IMPRESSION: 1. Biliary dyskinesia. 2. No bile duct obstruction identified. Dictated by: Dictated on workstation # [id number]
== END ==
LOC: CARD 07:54
PROVIDERS: ATTEND Family Medicine
DX: K82.8 Other specified diseases of gallbladder (principal)
CPT/HCPCS: 78227

== ENCOUNTER 2017-12-28 15:28 | Outpatient (CLI) | payer MEDICARE, OTHER ==
[~2017-12-28] VITALS: Ht 154.9 cm; Wt 48.1 kg
[~2017-12-28 15:28] MED LIST changes: -CATHETER FLUSH 10 ML SYR IV PRN; -HYDR-34 PO; -OMEP20TA33 PO; -ONDA8TAB9 PO; -XANAX PO
[2017-12-29] MEDS ORDERED: HYDR-34 PO (10:49)
[2017-12-29] MEDS ORDERED: OMEP20TA33 PO (12:46)
[2017-12-29] MEDS ORDERED: ONDA8TAB9 PO (12:49)
[2017-12-29] MEDS ORDERED: XANAX PO (12:54)
== END 2017-12-28 15:46 ==
LOC: PREOP 15:28
PROVIDERS: ATTEND Surgery
DX: Z01.818 Encounter for other preprocedural examination (principal); K82.8 Other specified diseases of gallbladder

== ENCOUNTER 2017-12-29 10:39 | Day surgery (SDC) | payer MEDICARE, OTHER ==
[~2017-12-29] VITALS: Ht 154.9 cm; Wt 49.3 kg
[2017-12-29 10:43] VITALS: BP 124/85
--- NOTE | 2017-12-29 10:47 | Progress Note-Pre Operative ---
Pre-Operative Progress Note H&P Reviewed The H&P was reviewed, patient examined and no changes noted. Date Seen by Provider: Dec 29, 2017 Time Seen by Provider: 10:45 Date H&P Reviewed: Dec 29, 2017 Time H&P Reviewed: 10:45 Pre-Operative Diagnosis: symptomatic biliary dyskinesia DEANNE BYRNE MD Dec 29, 2017 10:47 am
[2017-12-29] MEDS ORDERED: HYDR-34 PO (10:49)
--- NOTE | 2017-12-29 10:50 | Discharge Inst-Surgical ---
D/C Lap Instructions-CATY New, Converted, or Re-Newed RX: RX on Chart Follow Up Appt in 2 weeks Activity as tolerated No driving for 24 hours No driving while on pain medications Incentive Spirometry use every 2 hours while awake Regular Diet Symptoms to Report: Fever over 101 degree F, Nausea/Vomiting Infection Signs and Symptoms to report: Increased redness, Foul odor of wound, Increased drainage Bathing instructions: May shower Operative Area Clean/Dry; Keep incision clean/dry If any problems/questions: Contact your physician or go to Emergency Room DEANNE BYRNE MD Dec 29, 2017 10:50 am
[2017-12-29] MEDS ORDERED: HYDROcodone/APAP 5 MG/325 MG (LORTAB) TAB PO ONE (11:00)
[2017-12-29] MEDS ORDERED: morphine INJ 10 MG/ML 1ML (SYR OR VIAL) IVP PRN (11:00)
[2017-12-29] MEDS ORDERED: ACETAMINOPHEN 325 MG TABLET/CAPLET (TYLENOL) PO PRN (11:00)
[2017-12-29] MEDS ORDERED: ONDANSETRON 4 MG/2 ML (SDV) Z0FRAN IVP PRN ×2 (11:00→17:30)
[2017-12-29] MEDS ORDERED: ceFAZolin INJECTION 1,000 MG in NS (IVPB) 50 ML IV ONE (11:00)
[2017-12-29] MEDS ORDERED: BUP/EPI 0.5% 1:200,000 (SENSORCAINE) 30 ML VIAL ONE (11:25)
[2017-12-29] MEDS ORDERED: ONDANSETRON 4 MG/2 ML (SDV) Z0FRAN IV ONE (11:30)
[2017-12-29] MEDS ORDERED: FAMOTIDINE 20MG/2ML IV (PEPCID) IV ONE (11:30)
[2017-12-29] MEDS ORDERED: LACTATED RINGERS 1,000 ML IV PRN (12:17)
[2017-12-29] MEDS ORDERED: SEVOFLURANE (ULTANE) 15 ML INHAL SOLN ONE (12:33)
[2017-12-29] MEDS ORDERED: ONDANSETRON 4 MG/2 ML (SDV) Z0FRAN ONE (12:33)
[2017-12-29] MEDS ORDERED: LIDOCAINE PF 2% 5 ML (XYLOCAINE) VIAL ONE (12:33)
[2017-12-29] MEDS ORDERED: proPOfol 200 MG/20 ML (DIPRIVAN) VIAL IV ONE (12:33)
[2017-12-29] MEDS ORDERED: ROCURONIUM 50 MG/5 ML (ZEMURON) VIAL IV ONE (12:33)
[2017-12-29] MEDS ORDERED: DEXAMETHASONE 10 MG/ML (DECADRON) 1 ML VIAL ONE (12:33)
[2017-12-29] MEDS ORDERED: fentaNYL INJECTION 100 MCG/2 ML AMP ONE (12:34)
[2017-12-29] MEDS ORDERED: MIDAZOLAM 2 MG/2 ML (VERSED) VIAL ONE (12:34)
[2017-12-29] MEDS ORDERED: OMEP20TA33 PO (12:46)
[2017-12-29] MEDS ORDERED: ONDA8TAB9 PO (12:49)
[2017-12-29] MEDS ORDERED: XANAX PO (12:54)
[2017-12-29] MEDS ORDERED: MEPERIDINE (DEMEROL) INJ 50 MG/ML IVP PRN (17:30)
[2017-12-29] MEDS ORDERED: NEOSTIGMINE (BLOXIVERZ ) 1 MG/1ML 10 ML VIAL ONE (17:47)
[2017-12-29] MEDS ORDERED: GLYCOPYRROLATE 0.2 MG/ML (ROBINUL) 2 ML VIAL ONE (17:47)
--- NOTE | 2017-12-29 18:09 | Progress Note-Post Operative ---
Post-Operative Progess Note Surgeon (s)/Store Manager (s) Surgeon DEANNE BYRNE MD Store Manager: jesse yost [employer] EDUCATION TEACHER Pre-Operative Diagnosis symptomatic biliary dyskinesia Post-Operative Diagnosis chronic acalculous cholecystitis. Procedure & Operative Findings Date of Procedure 12/29/17 Procedure Performed/Findings laparoscopic cholecystectomy Anesthesia Type GET Estimated Blood Loss Estimated blood loss (mL): minimal Specimens/Packing Specimens Removed gallbladder. DEANNE BYRNE MD Dec 29, 2017 6:09 pm
[2017-12-29] MEDS: morphine INJ 10 MG/ML 1ML (SYR OR VIAL) IVP PRN ×2 (18:38→18:44)
[2017-12-29 19:15] VITALS: BP 175/72
[2017-12-29] MEDS ORDERED: fentaNYL INJECTION 100 MCG/2 ML AMP IVP PRN (19:45)
[2017-12-29] MEDS ORDERED: HYDROcodone/APAP 5 MG/325 MG (LORTAB) TAB PO PRN (19:45)
--- NOTE | 2017-12-29 23:06 | OPERATIVE REPORT ---
DATE OF SERVICE: 12/29/2017 ATTENDING PRIMARY: Dr. Anaya. PREOPERATIVE DIAGNOSIS: Chronic acalculous cholecystitis. POSTOPERATIVE DIAGNOSIS: Chronic acalculous cholecystitis. PROCEDURE: Laparoscopic cholecystectomy. SURGEON: Dr. Delgado. INBOUND CALL CENTER REPRESENTATIVE: Liam Novak APRN. ANESTHESIA: General endotracheal. ESTIMATED BLOOD LOSS: Minimal. FINDINGS: Chronic gallbladder wall inflammation with omental adhesions. DISPOSITION: The patient tolerated the procedure well. INDICATIONS: The patient is a 72-year-old female who was initially referred over to us for epigastric discomfort and dysphagia as well as weight loss. We did an EGD on her on 12/22/2017, which she was found to have a reflux esophagitis class B as well as a distal esophageal stricture and a small hiatal hernia approximately 1 to 1.5 cm in size. There was a pbxc-lh-majhgxvv gastritis; however, no ulcers, polyps or any neoplasms as well as no distal obstructions. Biopsies were negative for H. pylori as well as negative for Cm's esophagus. She continued to have symptoms and she did have HIDA scan on 12/24/2017 and she reports that she did develop epigastric pain as well as diarrhea after the test. DESCRIPTION OF PROCEDURE: The patient was brought to the operating room, laid supine on the table. After adequate IV pain and sedative medications and general endotracheal intubation, the abdomen was prepped and draped in standard surgical fashion. A 0.5% Marcaine with epinephrine was then used to anesthetize the overlying skin in the left upper abdominal quadrant. A small transverse skin incision made using a 15 blade. An 0 silk suture was applied to the medial aspect of the incision for retraction and a Veress needle inserted with a low opening pressure of 0 mmHg. The Veress needle removed and a 5 mm Xcel trocar placed followed by a 5 mm 45 degree angle laparoscope visualizing the peritoneal cavity. A 4-quadrant abdominal exploration was performed. There were omental adhesions towards the anterior abdominal wall secondary to previous transverse low abdominal incision for exploratory laparotomy. There was gallbladder wall dilatation as well as mild to moderate gallbladder wall inflammation as well as omental adhesions consistent with a chronic acalculous cholecystitis. Under direct visualization, we then proceeded to place a supraumbilical 10 mm port after the skin and the peritoneal lining were anesthetized using 0.5% Marcaine with epinephrine and a transverse skin incision made using a 15 blade. In a similar manner, a right upper abdominal quadrant 5 mm port was placed. The patient was then placed in reverse Trendelenburg position as well as plane right side up, left side down. The fundus of the gallbladder was then retracted anteriorly and superiorly. The omental adhesions were then taken down using blunt dissection as well as electrocautery on the hook instrument. The hepatoduodenal ligament was then opened and the entire critical view of safety was identified including the triangle of Calot as well as the cystic duct and artery as the only two structures going into the gallbladder as well as the cystic plate behind the proximal gallbladder. A timeout was then taken and the cystic duct and artery were then clipped proximally, distally and cut with EndoShears. The gallbladder was then dissected off the liver bed using electrocautery on the hook instrument with visualization good hemostasis as well as no leaking ducts of Luschka. The gallbladder was removed through the 10 mm port site using an EndoCatch bag. The gallbladder was examined on the back table with no stones identified, only thick bile. The 10 mm port fascia and peritoneum were then closed under direct visualization using a Taiwo-Darius device and 0 Vicryl suture. The abdomen was desufflated and remaining ports removed. All skin incisions were closed using 4-0 Monocryl running subcuticular sutures. Wounds were then cleaned and covered with Dermabond. The patient tolerated the procedure well. Due to pain control issues as well as nausea and ambulation issues, we will admit her 23-hour observation. Once she is tolerating clears and has good pain control with oral pain medications and is ambulating well, we will discharge her home. Job ID: [id number] DocumentID: [id number] Dictated Date: 12/29/2017 18:06:07 Casing Cleaner Date: 12/29/2017 23:05:54 Dictated By: DEANNE DELGADO MD
[2017-12-30] VITALS: BP 169/78
[2017-12-30 03:58] VITALS: BP 148/73
[2017-12-30 08:00] VITALS: BP 158/74
--- NOTE | 2017-12-30 08:41 | Anesthesia-General Post-Op ---
General Patient Condition Mental Status/LOC: Same as Preop Cardiovascular: Satisfactory Nausea/Vomiting: Absent Respiratory: Satisfactory Pain: Controlled Complications: Absent Post Op Complications Complications None Follow Up Care/Instructions Patient Instructions None needed. Anesthesia/Patient Condition Patient Condition Patient is doing well, no complaints, stable vital signs, no apparent adverse anesthesia problems. No complications reported per nursing. D/C home per [facility] Criteria: Yes CAMILLE LUTZ CRNA Dec 30, 2017 08:41
[2017-12-30 12:00] VITALS: BP 154/71
[2017-12-30] MEDS ORDERED: CATHETER FLUSH 10 ML SYR IV PRN (14:00)
[2017-12-30] MEDS ORDERED: ALPRAZolam 0.5 MG (XANAX) TAB PO PRN (14:00)
[2017-12-30 14:16] LABS: BASOPHILS % (AUTO) 0 % (0-10); EOSINOPHILS % (AUTO) 0 % (0-10); HEMATOCRIT 36 % (35-52); HEMOGLOBIN 12.5 G/DL (11.5-16.0); LYMPHOCYTES # (AUTO) 1.3 X 10^3 (1.0-4.0); LYMPHOCYTES % (AUTO) 9 % (12-44); MEAN CORPUSCULAR HEMOGLOBIN 32 PG (25-34); MEAN CORPUSCULAR HGB CONC 35 G/DL (32-36); MEAN CORPUSCULAR VOLUME 91 FL (80-99); MEAN PLATELET VOLUME 10.3 FL (7.4-10.4); MONOCYTES % (AUTO) 7 % (0-12); NEUTROPHILS # (AUTO) 12.8 X 10^3 (1.8-7.8); NEUTROPHILS % (AUTO) 84 % (42-75); PLATELET COUNT 288 10^3/uL (130-400); RED BLOOD COUNT 3.93 10^6/uL (4.35-5.85); RED CELL DISTRIBUTION WIDTH 12.8 % (10.0-14.5); WHITE BLOOD COUNT 15.2 10^3/uL (4.3-11.0)
[2017-12-30 14:33] LABS: BAND NEUTROPHILS 0 %; BASOPHILS % (MANUAL) 0 %; EOSINOPHILS % (MANUAL) 0 %; LYMPHOCYTES % (MANUAL) 4 %; MONOCYTES % (MANUAL) 5 %; NEUTROPHILS % (MANUAL) 91 %; RBC MORPH NORMAL
[2017-12-30 14:35] LABS: ALANINE AMINOTRANSFERASE 32 U/L (0-55); ALBUMIN 4.1 GM/DL (3.2-4.5); ALKALINE PHOSPHATASE 65 U/L (40-136); AMYLASE 60 U/L (25-125); BUN/CREATININE RATIO 11; CARBON DIOXIDE 24 MMOL/L (21-32); CHLORIDE 103 MMOL/L (98-107); CREATININE SERUM 1.13 MG/DL (0.60-1.30); GFR ESTIMATED 47; GLUCOSE 221 MG/DL (70-105); LIPASE 15 U/L (8-78); POTASSIUM 4.1 MMOL/L (3.6-5.0); SODIUM 134 MMOL/L (135-145); TOTAL PROTEIN 6.9 GM/DL (6.4-8.2)
[2017-12-30 14:36] LABS: ERYTHROCYTE SEDIMENTATION RATE 9 MM/HR (0-30)
--- NOTE | 2017-12-30 15:38 | Diagnostic Imaging Report ---
INDICATION: Chest pain. COMPARISON: 12/20/2017 FINDINGS: Frontal and lateral radiographic views of the chest were obtained. Since the previous exam, there has been interval development of moderate pneumoperitoneum. Note is made that patient is status post recent cholecystectomy. Cardiac silhouette and pulmonary vasculature within normal limits. Lungs are clear and show no focal consolidations, large effusion, nor pneumothoraces. Bony structures show no gross acute abnormalities. There is calcified aortic atherosclerosis. IMPRESSION: 1. Moderate pneumoperitoneum. Conceivably, this could be related to patient's recent cholecystectomy. Clinical correlation however is advised, as perforated hollow viscus cannot be entirely excluded based on this exam. 2. No evidence of failure or focal infiltrate. Report was called to Dr. Funmilayo Moreno at 3:25 p.m., by etta (for TS). Dictated by: Dictated on workstation # [id number]
--- NOTE | 2017-12-30 15:53 | Progress Note (SOAP) ---
Subjective Date Seen by Provider: Dec 30, 2017 Time Seen by Provider: 12:00 Subjective/Events-last exam doing ok. complained of left neck pain/spasm twice overnight. tolerating diet. abd pain controlled. no fever/chills. Objective Exam Vital Signs Date Time Temp Pulse Resp B/P (MAP) Pulse Ox O2 Delivery O2 Flow Rate FiO2 12/30/17 12:00 99.9 82 20 154/71 (98) 99 Room Air 12/30/17 09:00 98 Room Air 12/30/17 08:00 99.8 85 16 158/74 (102) 98 Room Air 12/30/17 03:58 99.2 100 16 148/73 (98) 100 Room Air 12/30/17 00:00 98.1 92 18 169/78 (108) 100 Room Air 12/29/17 20:00 Room Air 12/29/17 19:15 97.0 77 16 175/72 (106) 99 Room Air I & O 12/30/17 07:00 Intake Total 650 ml Output Total 800 ml Balance -150 ml Capillary Refill : General Appearance: No Apparent Distress HEENT: PERRL/EOMI Neck: Full Range of Motion Respiratory: Chest Non Tender, Lungs Clear Cardiovascular: Regular Rate, Rhythm Gastrointestinal: normal bowel sounds, soft, tenderness Extremity: Normal Capillary Refill Neurologic/Psychiatric: Alert, Oriented x3 Skin: Normal Color Lymphatic: No Adenopathy Results Lab Laboratory Tests 12/30/17 14:09: White Blood Count 15.2H, Red Blood Count 3.93L, Hemoglobin 12.5, Hematocrit 36, Mean Corpuscular Volume 91, Mean Corpuscular Hemoglobin 32, Mean Corpuscular Hemoglobin Concent 35, Red Cell Distribution Width 12.8, Platelet Count 288, Mean Platelet Volume 10.3, Neutrophils (%) (Auto) 84H, Lymphocytes (%) (Auto) 9L , Monocytes (%) (Auto) 7, Eosinophils (%) (Auto) 0, Basophils (%) (Auto) 0, Neutrophils # (Auto) 12.8H, Lymphocytes # (Auto) 1.3, Monocytes # (Auto) 1.0, Eosinophils # (Auto) 0.0, Basophils # (Auto) 0.0, Neutrophils % (Manual) 91, Lymphocytes % (Manual) 4, Monocytes % (Manual) 5, Eosinophils % (Manual) 0, Basophils % (Manual) 0, Band Neutrophils 0, Blood Morphology Comment NORMAL, Erythrocyte Sedimentation Rate 9, Sodium Level 134L, Potassium Level 4.1, Chloride Level 103, Carbon Dioxide Level 24, Anion Gap 7, Blood Urea Nitrogen 12 , Creatinine 1.13, Estimat Glomerular Filtration Rate 47, BUN/Creatinine Ratio 11, Glucose Level 221H, Calcium Level 10.0, Total Bilirubin 1.0, Aspartate Amino Transf (AST/SGOT) 45H, Alanine Aminotransferase (ALT/SGPT) 32, Alkaline Phosphatase 65, Troponin I < 0.30, Total Protein 6.9, Albumin 4.1, Amylase Level 60, Lipase 15 Assessment/Plan Assessment/Plan Assess & Plan/Chief Complaint s/p laparoscopic cholecystectomy. admitted for pain control and no PO fluid intake. doing better now. had 2 episodes left neck pain but most likely dehydration from being NPO about 36hrs. labs and cxr reviewed and ok. home soon. Clinical Quality Measures DVT/VTE Risk/Contraindication: Risk Factor Score Per Nursin RFS Level Per Nursing on Admit: 3=High DEANNE BYRNE MD Dec 30, 2017 3:53 pm
[2017-12-30 15:54] VITALS: BP 181/74
--- NOTE | 2017-12-30 16:48 | Consultation-Hospitalist ---
HPI History of Present Illness: HPI/Chief Complaint Patient not seen I ordered testing and she left the hospital before seen by this examiner Date Seen 12/30/17 Attending Physician Ricardo Delgado MD PCP Devan Anaya MD Referring Physician Date of Admission Home Medications & Allergies Home Medications Reviewed patient Home Medication Reconciliation Form Allergies Allergies Coded Allergies codeine (Unverified Allergy, Unknown, Pt takes Hydrocodone, has received morphine in the past, 12/29/17) Uncoded Allergies CT CONTRAST ( Allergy, Unknown, 02/02/15) Past Gjwubii-Mtpuvi-Fdupkn Hx Patient Social History Alcohol Use: Denies Use Recreational Drug Use: No Smoking Status: Never a Smoker Physical Abuse Screen: No Sexual Abuse: No Recent Foreign Travel: No Contact w/other who traveled: No Recent Hopitalizations: No Recent Infectious Disease Expo: No Immunizations Up To Date Date of Pneumonia Vaccine: Aug 17, 2017 Date of Influenza Vaccine: Aug 17, 2017 Seasonal Allergies Seasonal Allergies: No Surgeries Yes (EXP LAP WITH BILATERAL OVARIAN CYST REMOVAL; BACK SURGERY) Abdominal, Appendectomy, Orthopedic Respiratory No Cardiovascular No High Cholesterol Neurological No Reproductive System Hx Reproductive Disorders: No Female Reproductive Disorders: Endometriosis, Ovarian Cyst Genitourinary No Gastrointestinal Yes Gastroesophageal Reflux, Gall Bladder Disease, Irritable Bowel Musculoskeletal Yes Osteoporosis, Arthritis Endocrine History of Endocrine Disorders: No HEENT History of HEENT Disorders: No Cancer No Psychosocial History of Psychiatric Problem: Yes Behavioral Health Disorders: Anxiety Integumentary History of Skin or Integumenta: No Blood Transfusions History of Blood Disorders: No Adverse Reaction to a Blood Tr: No Family Medical History Family Hx: Cancer Chest pain Family history: Allergy Family history: Cardiovascular disease Family history: Gastrointestinal disease Heart disease Myocardial infarction Visual impairment No Family History of: Abdominal aortic aneurysm Geneva's disease Alcoholism Aphasia Cancer of colon Cataract Congestive heart failure Cystic fibrosis Dementia Dysphagia Family history: Alzheimer's disease Family history: Arthritis Family history: Asthma Family history: Breast disease Family history: Coronary thrombosis Family history: Diabetes mellitus Family history: Glaucoma Family history: Hypertension Family history: Osteoporosis Family history: Thyroid disorder Headache Hearing loss Hereditary disease History of - anemia History of - disorder History of - respiratory disease History of drug abuse Human immunodeficiency virus (HIV) seropositivity Hypercholesterolemia Infertile Kidney disease Malignant neoplasm of lung Parkinson's disease Prostate cancer Psychotic disorder Seizure disorder Stroke Tuberculosis Review of Systems Constitutional: see HPI Physical Exam Physical Exam Vital Signs Vital Signs - First Documented 12/29/17 10:43 Temp 96.8 Pulse 83 Resp 16 B/P (MAP) 124/85 (98) Pulse Ox 95 O2 Delivery Room Air Capillary Refill : General Appearance: Other (Patient not seen I ordered testing and she left the hospital before seen by this examiner) Results Results/Procedures Lab Laboratory Tests 12/30/17 14:09 Assessment/Plan Admission Diagnosis Patient not seen I ordered testing and she left the hospital before seen by this examiner Clinical Quality Measures DVT/VTE Risk/Contraindication: Risk Factor Score Per Nursin RFS Level Per Nursing on Admit: 3=High DEAN BERMAN DO Dec 30, 2017 16:48
--- OUTSIDE RECORDS SUMMARY | 2017-12-31 13:44 | XMS REPORT | Clinical Summary ---
Author Author [facility] Organization [facility] Address Unknown Phone Unavailable Care Team Providers Care E Mail System Administrator Name Role Phone Mike Fontana MD Unavailable [employer] MARIE Unavailable Unavailable Alicia Lorena AUD Unavailable Source Comments Some departments are not documenting in the electronic medical record. If you do not see the information that you expected, contact Release of Information in the Health Information Management department at [phone] for further assistance in locating additional records.[facility] Allergies Active Allergy Reactions Severity Noted Date Comments Iodinated Contrast- Oral UNKNOWN 05/24/2014 And Iv Dye Current Medications Prescription Sig. Disp. Refills Start [...] (BETAHISTINE (BULK)) 100 times daily. 14 % powdIndications: Labyrinthitis of left ear Active Problems Problem Noted Date Labyrinthitis of left ear 07/03/2014 Family History Relation Name Status Comments Brother Brother Alive Father Mother Sister Social History Tobacco Use Types Packs/Day Years Used Date Never Smoker Smokeless Tobacco: Never Used Sex Assigned at Date Recorded Not on file Last Filed Vital Signs Vital Sign Reading Time Taken Blood Pressure 133/71 07/03/2014 11:27 AM CDT Pulse 68 07/03/2014 11:27 AM CDT Temperature - - Respiratory Rate - - Oxygen Saturation - - Inhaled Oxygen - - Concentration Weight 51.8 kg (114 lb 3.2 oz) 07/03/2014 11:27 AM CDT Height 154.9 cm (5' 1") 07/03/2014 11:27 AM CDT Body Mass Index 21.58 07/03/2014 11:27 AM CDT Plan of Treatment Health Maintenance Due Date Last Done Comments PHYSICAL (COMPREHENSIVE) 01/18/1952 EXAM PERTUSSIS VACCINE 01/18/1955 TETANUS VACCINE 01/18/1961 BREAST CANCER SCREENING 1984 COLORECTAL CANCER 01/18/1994 SCREENING SHINGLES VACCINE 2004 OSTEOPOROSIS SCREENING 01/18/2009 PREVNAR/PNEUMOVAX (#1) 01/18/2009 INFLUENZA VACCINE 06/16/2017 Results Not on filefrom Last 3 Months
--- OUTSIDE RECORDS SUMMARY | 2017-12-31 13:45 | XMS REPORT | Continuity of Care Document ---
Author Author [facility] Organization [facility] Address Unknown Phone Unavailable Allergies Active Description Code Type Severity Reaction Onset Reported/Identified Relationship to Patient Clinical Status Yes codeine [id number] Drug Allergy Unknown N/A 02/02/[address] CONTRAST Unknown N/A 02/02/2015 Medications There is no data. Problems Date Dx Coded Attending Type Code Diagnosis Diagnosed By 03/19/2012 Ot 535.40 OTH SPECIFIED GASTRITIS,W/O MENTION OF H 03/19/2012 Ot 553.3 DIAPHRAGMATIC HERNIA 12/09/2013 AG COREA MD Ot 386.30 LABYRINTHITIS NOS 12/09/2013 AG COREA MD R Ot 530.81 ESOPHAGEAL REFLUX 12/09/2013 AG COREA MD R Ot 564.1 IRRITABLE BOWEL SYNDROME 12/09/2013 AG COREA MD R Ot 617.9 ENDOMETRIOSIS NOS 12/09/2013 AG COREA MD R Ot 719.7 DIFFICULTY IN WALKING 12/09/2013 AG COREA MD R Ot 780.79 OTH MALAISE FATIGUE 12/09/2013 AG COREA MD R Ot 787.01 NAUSEA WITH VOMITING 12/09/2013 AG COREA MD R Ot V58.66 LONG-TERM (CURRENT) USE OF ASPIRIN 12/05/2014 AG COREA MD R Ot V76.12 02/02/2015 Ot 780.4 DIZZINESS AND GIDDINESS 03/16/2015 AG COREA MD Ot 733.90 02/06/2016 Ot 397.0 02/06/2016 Ot 780.79 02/06/2016 Ot 780.79 02/06/2016 Ot 733.90 02/06/2016 Ot V76.12 02/06/2016 Ot V76.12 02/06/2016 Ot 530.81 02/06/2016 Ot 783.21 02/06/2016 Ot V72.84 02/06/2016 Ot V76.12 02/06/2016 Ot 733.90 02/06/2016 LEDY BRITT DO Ot V76.12 02/06/2016 ANMOL SCANLON, AG R Ot 780.4 02/06/2016 ANMOL SCANLON, AG R Ot 780.93 02/06/2016 ANMOL SCANLON, AG R Ot 786.2 02/06/2016 ANMOL SCANLON, AG R Ot V76.12 02/06/2016 ANMOL SCANLON, AG R Ot 733.90 02/06/2016 ANMOL SCANLON, AG R Ot Z12.31 02/06/2016 BIENVENIDO GUARDADO DO Ot L25.9 UNSPECIFIED CONTACT DERMATITIS, UNSPECIF 11/14/2016 Ot V76.12 OTH SCREEN MAMMO-MALIGN NEOPLASM OF VIVIEN 11/14/2016 Ot 530.81 ESOPHAGEAL REFLUX 11/14/2016 Ot 783.21 LOSS OF WEIGHT 11/14/2016 Ot V72.84 EXAM PRE- OPERATIVE NOS 11/14/2016 Ot V76.12 OTH SCREEN MAMMO-MALIGN NEOPLASM OF VIVIEN 11/14/2016 Ot 733.90 BONE CARTILAGE DIS NOS 11/14/2016 LEDY BRITT DO Ot V76.12 OTH SCREEN MAMMO-MALIGN NEOPLASM OF VIVIEN 11/14/2016 ANMOL SCANLON, AG R Ot 780.4 DIZZINESS AND GIDDINESS 11/14/2016 ANMOL SCANLON, AG R Ot 780.93 MEMORY LOSS 11/14/2016 ANMOL SCANLON, AG R Ot 786.2 COUGH 11/14/2016 ANMOL SCANLON, AG R Ot V76.12 OTH SCREEN MAMMO-MALIGN NEOPLASM OF VIVIEN 11/14/2016 ANMOL SCANLON, AG R Ot 733.90 BONE CARTILAGE DIS NOS 11/14/2016 ANMOL SCANLON, AG R Ot Z12.31 ENCNTR SCREEN MAMMOGRAM FOR MALIGNANT NE 11/17/2016 AG COREA MD R Ot Z12.31 ENCNTR SCREEN MAMMOGRAM FOR MALIGNANT NE 11/17/2016 AG COREA MD R Ot Z12.31 ENCNTR SCREEN MAMMOGRAM FOR MALIGNANT NE 11/19/2016 AG COREA MD R Ot Z12.31 ENCNTR SCREEN MAMMOGRAM FOR MALIGNANT NE 11/24/2016 MAXIMILIANO COREA MDYD R Ot R92.8 OTH ABN AND INCONCLUSIVE FINDINGS ON DX 11/25/2016 AG COREA MD R Ot R92.8 OTH ABN AND INCONCLUSIVE FINDINGS ON DX 11/25/2016 AG COREA MD R Ot R92.8 OTH ABN AND INCONCLUSIVE FINDINGS ON DX 11/30/2016 AG COREA MD R Ot R92.8 OTH ABN AND INCONCLUSIVE FINDINGS ON DX 12/08/2016 AG COREA MD R Ot Z12.31 ENCNTR SCREEN MAMMOGRAM FOR MALIGNANT NE 12/18/2016 AG COREA MD R Ot R92.8 OTH ABN AND INCONCLUSIVE FINDINGS ON DX 12/23/2016 AG COREA MD R Ot R92.8 OTH ABN AND INCONCLUSIVE FINDINGS ON DX 04/03/2017 AG COREA MD R Ot M85.88 OTH DISRD OF BONE DENSITY AND STRUCTURE, 04/08/2017 AG COREA MD R Ot M85.88 OTH DISRD OF BONE DENSITY AND STRUCTURE, 04/21/2017 AG COREA MD R Ot R92.8 OTH ABN AND INCONCLUSIVE FINDINGS ON DX 04/23/2017 AG COREA MD R Ot M85.88 OTH DISRD OF BONE DENSITY AND STRUCTURE, 05/12/2017 AG COREA MD R Ot R92.8 OTH ABN AND INCONCLUSIVE FINDINGS ON DX 10/19/2017 AG COREA MD R Ot Z12.31 ENCNTR SCREEN MAMMOGRAM FOR MALIGNANT NE 10/19/2017 AG COREA MD R Ot Z12.31 ENCNTR SCREEN MAMMOGRAM FOR MALIGNANT NE 12/18/2017 TOMAS EWING APRN Ot K21.9 GASTRO-ESOPHAGEAL REFLUX DISEASE WITHOUT 12/18/2017 TOMAS EWING APRN Ot K22.8 OTHER SPECIFIED DISEASES OF ESOPHAGUS 12/18/2017 TOMAS EWING APRN Ot M81.0 AGE-RELATED OSTEOPOROSIS W/O CURRENT PAT 12/18/2017 TOMAS EWING APRN Ot R09.89 OTH SYMPTOMS AND SIGNS INVOLVING THE CIR 12/18/2017 TOMAS EWING APRN Ot 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 12/18/2017 TOMAS EWING APRN Ot Z87.42 PERSONAL HISTORY OF OTH DISEASES OF THE 12/18/2017 TOMAS EWING APRN Ot Z88.5 ALLERGY STATUS TO NARCOTIC AGENT STATUS 12/18/2017 TOMAS EWING APRN Ot Z90.49 ACQUIRED ABSENCE OF OTHER SPECIFIED PART 12/18/2017 TOMAS EWING APRN Ot Z91.041 RADIOGRAPHIC DYE ALLERGY STATUS 12/21/2017 TOMAS EWING APRN Ot K21.9 GASTRO-ESOPHAGEAL REFLUX DISEASE WITHOUT 12/21/2017 TOMAS EWING APRN Ot K22.8 OTHER SPECIFIED DISEASES OF ESOPHAGUS 12/21/2017 TOMAS EWING APRN Ot M81.0 AGE-RELATED OSTEOPOROSIS W/O CURRENT PAT 12/21/2017 TOMAS EWING APRN Ot R09.89 OTH SYMPTOMS AND SIGNS INVOLVING THE CIR 12/21/2017 TOMAS EWING APRN Ot 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 12/21/2017 TOMAS EWING APRN Ot Z87.42 PERSONAL HISTORY OF OTH DISEASES OF THE 12/21/2017 TOMAS EWING APRN Ot Z88.5 ALLERGY STATUS TO NARCOTIC AGENT STATUS 12/21/2017 TOMAS EWING APRN Ot Z90.49 ACQUIRED ABSENCE OF OTHER SPECIFIED PART 12/21/2017 TOMAS EWING APRN Ot Z91.041 RADIOGRAPHIC DYE ALLERGY STATUS 12/21/2017 AAMIR BURRELL MD Ot F41.9 ANXIETY DISORDER, UNSPECIFIED 12/21/2017 AAMIR BURRELL MD Ot K21.9 GASTRO-ESOPHAGEAL REFLUX DISEASE WITHOUT 12/21/2017 AAMIR BURRELL MD Ot M81.0 AGE-RELATED OSTEOPOROSIS W/O CURRENT PAT 12/21/2017 AAMIR BURRELL MD Ot R06.02 SHORTNESS OF BREATH 12/21/2017 AAMIR BURRELL MD Ot R10.13 EPIGASTRIC PAIN 12/21/2017 AAMIR BURRELL MD Ot R19.7 DIARRHEA, UNSPECIFIED 12/21/2017 AAMIR BURRELL MD Ot 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 12/21/2017 AAMIR BURRELL MD Ot 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 12/21/2017 AAMIR BURRELL MD Ot Z87.42 PERSONAL HISTORY OF OTH DISEASES OF THE 12/21/2017 AAMIR BURRELL MD Ot Z88.5 ALLERGY STATUS TO NARCOTIC AGENT STATUS 12/21/2017 AAMIR BURRELL MD Ot Z90.49 ACQUIRED ABSENCE OF OTHER SPECIFIED PART 12/21/2017 AAMIR BURRELL MD Ot F41.9 ANXIETY DISORDER, UNSPECIFIED 12/21/2017 AAMIR BURRELL MD Ot K21.9 GASTRO-ESOPHAGEAL REFLUX DISEASE WITHOUT 12/21/2017 AAMIR BURRELL MD Ot M81.0 AGE-RELATED OSTEOPOROSIS W/O CURRENT PAT 12/21/2017 AAMIR BURRELL MD Ot R06.02 SHORTNESS OF BREATH 12/21/2017 AAMIR BURRELL MD Ot R10.13 EPIGASTRIC PAIN 12/21/2017 AAMIR BURRELL MD Ot R19.7 DIARRHEA, UNSPECIFIED 12/21/2017 AAMIR BURRELL MD Ot Z79.52 NURSING HOME (CURRENT) USE OF SYSTEMIC STER 12/21/2017 AAMIR BURRELL MD Ot Z79.82 NURSING HOME (CURRENT) USE OF ASPIRIN 12/21/2017 AAMIR BURRELL MD, Ot Z87.42 PERSONAL HISTORY OF OTH DISEASES OF THE 12/21/2017 AAMIR BURRELL MD, Ot Z88.5 ALLERGY STATUS TO NARCOTIC AGENT STATUS 12/21/2017 AAMIR BURRELL MD Ot Z90.49 ACQUIRED ABSENCE OF OTHER SPECIFIED PART 12/22/2017 AG COREA MD Ot N63.10 UNSPECIFIED LUMP IN THE RIGHT BREAST, UN 12/22/2017 AG COREA MD Ot N63.20 UNSPECIFIED LUMP IN THE LEFT BREAST, UNS 12/22/2017 DEANNE BYRNE MD, Ot K21.9 GASTRO-ESOPHAGEAL REFLUX DISEASE WITHOUT 12/22/2017 DEANNE BYRNE MD, Ot R06.02 SHORTNESS OF BREATH 12/22/2017 DEANNE BYRNE MD, Ot R13.10 DYSPHAGIA, UNSPECIFIED 12/22/2017 DEANNE BYRNE MD, Ot Z01.818 ENCOUNTER FOR OTHER PREPROCEDURAL EXAMIN 12/23/2017 DEANNE BYRNE MD Ot E78.00 PURE HYPERCHOLESTEROLEMIA, UNSPECIFIED 12/23/2017 DEANNE BYRNE MD, Ot F41.9 ANXIETY DISORDER, UNSPECIFIED 12/23/2017 DEANNE BYRNE MD, Ot K21.0 GASTRO-ESOPHAGEAL REFLUX DISEASE WITH ES 12/23/2017 DEANNE BYRNE MD, Ot K22.2 ESOPHAGEAL OBSTRUCTION 12/23/2017 DEANNE BYRNE MD, Ot K29.70 GASTRITIS, UNSPECIFIED, WITHOUT BLEEDING 12/23/2017 DEANNE BYRNE MD, Ot K44.9 DIAPHRAGMATIC HERNIA WITHOUT OBSTRUCTION 12/23/2017 DEANNE BYRNE MD, Ot M19.91 PRIMARY OSTEOARTHRITIS, UNSPECIFIED SITE 12/23/2017 DEANNE BYRNE MD, Ot M85.80 OTH DISRD OF BONE DENSITY AND STRUCTURE, 12/23/2017 DEANNE BYRNE MD, Ot 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 Results Test Result Range Complete blood count (CBC) with automated white blood cell (WBC) differential - 12/18/17 12:37 Blood leukocytes automated count (number/volume) 8.9 10*3/uL 4.3-11.0 Blood erythrocytes automated count (number/volume) 4.15 10*6/uL 4.35-5.85 Venous blood hemoglobin measurement (mass/volume) 12.9 g/dL 11.5-16.0 Blood hematocrit (volume fraction) 38 % 35-52 Automated erythrocyte mean corpuscular volume 92 [foz_us] 80-99 Automated erythrocyte mean corpuscular hemoglobin (mass per erythrocyte) 31 pg 25-34 Automated erythrocyte mean corpuscular hemoglobin concentration measurement ( mass/volume) 34 g/dL 32-36 Automated erythrocyte distribution width ratio 13.5 % 10.0-14.5 Automated blood platelet count (count/volume) 279 10*3/uL 130-400 Automated blood platelet mean volume measurement 10.3 [foz_us] 7.4-10.4 Automated blood neutrophils/100 leukocytes 58 % 42-75 Automated blood lymphocytes/100 leukocytes 33 % 12-44 Blood monocytes/100 leukocytes 8 % 0-12 Automated blood eosinophils/100 leukocytes 1 % 0-10 Automated blood basophils/100 leukocytes 0 % 0-10 Blood neutrophils automated count (number/volume) 5.2 10*3 1.8-7.8 Blood lymphocytes automated count (number/volume) 3.0 10*3 1.0-4.0 Blood monocytes automated count (number/volume) 0.7 10*3 0.0-1.0 Automated eosinophil count 0.1 10*3/uL 0.0-0.3 Automated blood basophil count (count/volume) 0.0 10*3/uL 0.0-0.1 Comprehensive metabolic panel - 12/18/17 12:37 Serum or plasma sodium measurement (moles/volume) 141 mmol/L 135-145 Serum or plasma potassium measurement (moles/volume) 3.8 mmol/L 3.6-5.0 Serum or plasma chloride measurement (moles/volume) 105 mmol/L 98-107 Carbon dioxide 24 mmol/L 21-32 Serum or plasma anion gap determination (moles/volume) 12 mmol/L 5-14 Serum or plasma urea nitrogen measurement (mass/volume) 16 mg/dL 7-18 Serum or plasma creatinine measurement (mass/volume) 1.02 mg/dL 0.60-1.30 Serum or plasma urea nitrogen/creatinine mass ratio 16 NRG Serum or plasma creatinine measurement with calculation of estimated glomerular filtration rate 53 NRG Serum or plasma glucose measurement (mass/volume) 87 mg/dL 70-105 Serum or plasma calcium measurement (mass/volume) 10.1 mg/dL 8.5-10.1 Serum or plasma total bilirubin measurement (mass/volume) 1.3 mg/dL 0.1-1.0 Serum or plasma alkaline phosphatase measurement (enzymatic activity/volume) 72 U/L 40-136 Serum or plasma aspartate aminotransferase measurement (enzymatic activity/ volume) 23 U/L 5-34 Serum or plasma alanine aminotransferase measurement (enzymatic activity/volume ) 16 U/L 0-55 Serum or plasma protein measurement (mass/volume) 7.1 g/dL 6.4-8.2 Serum or plasma albumin measurement (mass/volume) 4.3 g/dL 3.2-4.5 Serum or plasma troponin i.cardiac measurement (mass/volume) - 12/18/17 12:37 Serum or plasma troponin i.cardiac measurement (mass/volume) < ng/ mL <0.30 Complete blood count (CBC) with automated white blood cell (WBC) differential - 12/20/17 04:26 Blood leukocytes automated count (number/volume) 8.8 10*3/uL 4.3-11.0 Blood erythrocytes automated count (number/volume) 4.42 10*6/uL 4.35-5.85 Venous blood hemoglobin measurement (mass/volume) 13.6 g/dL 11.5-16.0 Blood hematocrit (volume fraction) 41 % 35-52 Automated erythrocyte mean corpuscular volume 92 [foz_us] 80-99 Automated erythrocyte mean corpuscular hemoglobin (mass per erythrocyte) 31 pg 25-34 Automated erythrocyte mean corpuscular hemoglobin concentration measurement ( mass/volume) 34 g/dL 32-36 Automated erythrocyte distribution width ratio 13.5 % 10.0-14.5 Automated blood platelet count (count/volume) 298 10*3/uL 130-400 Automated blood platelet mean volume measurement 9.9 [foz_us] 7.4-10.4 Automated blood neutrophils/100 leukocytes 56 % 42-75 Automated blood lymphocytes/100 leukocytes 35 % 12-44 Blood monocytes/100 leukocytes 7 % 0-12 Automated blood eosinophils/100 leukocytes 2 % 0-10 Automated blood basophils/100 leukocytes 0 % 0-10 Blood neutrophils automated count (number/volume) 4.9 10*3 1.8-7.8 Blood lymphocytes automated count (number/volume) 3.1 10*3 1.0-4.0 Blood monocytes automated count (number/volume) 0.6 10*3 0.0-1.0 Automated eosinophil count 0.1 10*3/uL 0.0-0.3 Automated blood basophil count (count/volume) 0.0 10*3/uL 0.0-0.1 Fibrin D-dimer FEU measurement in platelet poor plasma (mass/volume) - 04:26 Fibrin D-dimer FEU measurement in platelet poor plasma (mass/volume) 0.70 ug/mL 0.00-0.49 Influenza virus A and B antigen detection - 12/20/17 04:26 FLU RESULT NEGATIVE FOR INFLUENZA A AND B ANTIGENS BY [facility] Blood lactic acid measurement (moles/volume) - 12/20/17 04:26 Blood lactic acid measurement (moles/volume) 1.41 mmol/L 0.50-2.00 Comprehensive metabolic panel - 12/20/17 04:26 Serum or plasma sodium measurement (moles/volume) 139 mmol/L 135-145 Serum or plasma potassium measurement (moles/volume) 3.5 mmol/L 3.6-5.0 Serum or plasma chloride measurement (moles/volume) 104 mmol/L 98-107 Carbon dioxide 21 mmol/L 21-32 Serum or plasma anion gap determination (moles/volume) 14 mmol/L 5-14 Serum or plasma urea nitrogen measurement (mass/volume) 18 mg/dL 7-18 Serum or plasma creatinine measurement (mass/volume) 1.12 mg/dL 0.60-1.30 Serum or plasma urea nitrogen/creatinine mass ratio 16 NRG Serum or plasma creatinine measurement with calculation of estimated glomerular filtration rate 48 NRG Serum or plasma glucose measurement (mass/volume) 105 mg/dL 70-105 Serum or plasma calcium measurement (mass/volume) 10.1 mg/dL 8.5-10.1 Serum or plasma total bilirubin measurement (mass/volume) 1.5 mg/dL 0.1-1.0 Serum or plasma alkaline phosphatase measurement (enzymatic activity/volume) 71 U/L 40-136 Serum or plasma aspartate aminotransferase measurement (enzymatic activity/ volume) 26 U/L 5-34 Serum or plasma alanine aminotransferase measurement (enzymatic activity/volume ) 16 U/L 0-55 Serum or plasma protein measurement (mass/volume) 7.2 g/dL 6.4-8.2 Serum or plasma albumin measurement (mass/volume) 4.3 g/dL 3.2-4.5 Magnesium - 12/20/17 04:26 Magnesium 2.2 mg/dL 1.8-2.4 Serum or plasma troponin i.cardiac measurement (mass/volume) - 12/20/17 04:26 Serum or plasma troponin i.cardiac measurement (mass/volume) < ng/ mL <0.30 Serum or plasma C reactive protein measurement (mass/volume) - 12/20/17 04:26 Serum or plasma C reactive protein measurement (mass/volume) 0.10 mg /dL 0.00-0.50 Serum or plasma lithium measurement (moles/volume) - 12/20/17 04:26 BNP level < pg/mL <100.0 Encounters ACCT No. Visit Date/Time Discharge Status Pt. Type Provider Facility Loc./Unit Complaint [id number] 12/24/2017 07:54:00 12/24/2017 23:59:59 CLS Outpatient AG COREA MD [facility] CARD EPIGASTRIC ABD PAIN [id number] 12/22/2017 10:47:00 12/22/2017 13:30:00 DIS Outpatient DEANNE BYRNE MD [facility] ENDO DYSPHAGIA/REFLUX/S.O.B. [id number] 12/21/2017 15:17:00 12/21/2017 15:36:00 DIS Outpatient DEANNE BYRNE MD [facility] PREOP EGD POSS DILATION [id number] 12/20/2017 04:18:00 12/20/2017 08:18:00 DIS Outpatient AAMIR BURRELL MD [facility] ER SOA [id number] 12/18/2017 11:39:00 12/18/2017 13:39:00 DIS Emergency TOMAS EWING APRN [facility] ER POSS SOMETHING CAUGHT IN THROAT/SOB [id number] 11/17/2017 08:04:00 11/17/2017 23:59:59 CLS Outpatient AG COREA MD [facility] RAD ABNORMAL MAMMO [id number] 04/22/2017 07:47:00 04/22/2017 23:59:59 CLS Outpatient AG COREA MD [facility] RAD ABNORMAL MAMMO LT R92.8 [id number] 04/02/2017 09:32:00 04/02/2017 23:59:59 CLS Outpatient AG COREA MD [facility] RAD OSTEOPENIA M85.80 [id number] 11/24/2016 08:44:00 11/24/2016 23:59:59 CLS Outpatient AG COREA MD [facility] RAD ABNORMAILTY OF R BREAST [id number] 11/14/2016 07:31:00 11/14/2016 23:59:59 CLS Outpatient AG COREA MD [facility] RAD SCREENING [id number] 02/06/2016 05:54:00 02/06/2016 06:49:00 DIS Emergency BIENVENIDO GUARDADO DO [facility] ER POSS ALLERGIC RXN [id number] 11/13/2015 09:02:00 11/13/2015 23:59:59 CLS Outpatient AG COREA MD [facility] RAD SCREENING [id number] 02/22/2015 09:00:00 02/22/2015 23:59:59 CLS Outpatient AG COREA MD [facility] RAD OSTEOPOROSIS [id number] 11/08/2014 07:02:00 11/08/2014 23:59:59 CLS Outpatient AG COREA MD [facility] RAD ROUTINE [id number] 08/07/2014 09:32:00 08/07/2014 23:59:59 CLS Outpatient AG COREA MD [facility] RAD COUGH X 3 WEEKS [id number] 01/06/2014 10:28:00 01/06/2014 23:59:59 CLS Outpatient AG COREA MD [facility] RAD VERTIGO [id number] 12/08/2013 20:38:00 12/09/2013 09:35:00 DIS Inpatient AG COREA MD [facility] 4TH VERTIGO (PERIPHERAL), NAUSEA VOMITING [id number] 11/07/2013 06:50:00 11/07/2013 23:59:59 CLS Outpatient LEDY BRITT DO [facility] RAD SCREENING [id number] 12/29/2017 10:47:00 Document Registration [id number] 02/02/2015 10:52:00 Document Registration [id number] 01/07/2013 08:02:00 Document Registration [id number] 11/04/2012 09:11:00 Document Registration [id number] 03/19/2012 06:50:00 Document Registration [id number] 03/18/2012 08:43:00 Document Registration [id number] 03/10/2012 07:09:00 Document Registration [id number] 11/03/2011 07:04:00 Document Registration [id number] 10/28/2010 07:59:00 Document Registration [id number] 10/03/2010 07:58:00 Document Registration [id number] 09/30/2010 10:47:00 Document Registration
== END 2017-12-30 17:14 | disposition home or self-care (01) ==
LOC: SDC 10:39 → 4TH 19:15 → SDC 12-30 17:14
PROVIDERS: ATTEND Surgery
DX: K81.1 Chronic cholecystitis (principal); E78.00 Pure hypercholesterolemia, unspecified; F41.9 Anxiety disorder, unspecified; M85.80 Other specified disorders of bone density and structure, unspecified site; M19.91 Primary osteoarthritis, unspecified site; K21.0 Gastro-esophageal reflux disease with esophagitis; K44.9 Diaphragmatic hernia without obstruction or gangrene; K29.70 Gastritis, unspecified, without bleeding; Z79.82 Long term (current) use of aspirin; Z79.899 Other long term (current) drug therapy
CPT/HCPCS: 36415; 71046; 80053; 82150; 83690; 84484; 85007; 85027; 85652; 87081; 93005; 94664

== ENCOUNTER → 2018-11-22 | Outpatient (CLI) | payer MEDICARE, OTHER ==
[~2018-11-22] MED LIST changes: +HYDR-34 PO; +OMEP20TA33 PO; +ONDA8TAB9 PO; +XANAX PO
--- NOTE | 2018-11-22 11:02 | Diagnostic Imaging Report ---
INDICATION: Routine screening. COMPARISON: 11/17/2017 and 11/14/2016. TECHNIQUE: 2D and 3D bilateral screening mammography was performed with CAD. FINDINGS: Both breasts remain heterogeneously dense, limiting the sensitivity of mammography. The circumscribed mass in the medial right breast appears stable. No new mass or malignant appearing microcalcifications are seen. The axillae are unremarkable. IMPRESSION: No mammographic features suspicious for malignancy are identified. ACR BI-RADS Category 2: Benign findings. Result letter will be mailed to the patient. Note: At least 10% of breast cancer is not imaged by mammography. Dictated by: Dictated on workstation # [id number]
== END ==
LOC: RAD 07:32
PROVIDERS: ATTEND Nurse Practitioner Family
DX: C50.811 Malignant neoplasm of overlapping sites of right female breast (principal)
CPT/HCPCS: 77067

== ENCOUNTER → 2019-08-29 | Outpatient (CLI) | payer MEDICARE, OTHER ==
--- NOTE | 2019-08-29 16:30 | Diagnostic Imaging Report ---
INDICATION: Left-sided chest pain. EXAMINATION: PA and lateral chest. FINDINGS: The heart size and pulmonary vascularity are normal. The lungs are clear. There are no effusions or pneumothoraces. IMPRESSION: Negative chest. Dictated by: Dictated on workstation # [id number]
--- NOTE | 2019-08-29 16:54 | Diagnostic Imaging Report ---
INDICATION: Left-sided neck pain. TECHNIQUE: AP, odontoid, and lateral views of the cervical spine are obtained. FINDINGS: Cervical vertebrae are normal in height. There is disc space narrowing with endplate irregularity at C3-C4. There is disc space narrowing with osteophyte formation at C5-C6 and C6-C7. There is no overt destructive bony lesion. There is no prevertebral soft tissue swelling. There is diffuse facet degenerative change on both sides throughout the cervical region. IMPRESSION: Degenerative findings in the cervical spine without overt acute abnormality. Dictated by: Dictated on workstation # [id number]
== END ==
LOC: RAD 15:42
PROVIDERS: ATTEND Family Medicine
DX: M50.31 Other cervical disc degeneration, high cervical region (principal); M47.812 Spondylosis without myelopathy or radiculopathy, cervical region; R07.89 Other chest pain; Z80.1 Family history of malignant neoplasm of trachea, bronchus and lung
CPT/HCPCS: 71046; 72040

== ENCOUNTER → 2019-11-29 | Outpatient (CLI) | payer MEDICARE, OTHER ==
[~2019-11-29] MED LIST changes: +OMEP40CA27 PO; -OMEP40CA36 PO
--- NOTE | 2019-11-29 12:57 | Diagnostic Imaging Report ---
INDICATION: Routine screening. Comparison is made with prior mammogram 11/22/2018 and 11/17/2017. 2-D and 3-D bilateral screening mammography was performed with CAD. Both breasts are heterogeneously dense, limiting the sensitivity of mammography. Circumscribed mass in the medial right breast is stable. No new mass or malignant appearing microcalcifications are seen. Axillae are unremarkable. IMPRESSION: BI-RADS Category 2 No mammographic features suspicious for malignancy are identified. ACR BI-RADS Category 2: Benign findings. Result letter will be mailed to the patient. Note: At least 10% of breast cancer is not imaged by mammography. Dictated by: Dictated on workstation # [id number]
--- NOTE | 2019-11-29 16:26 | Diagnostic Imaging Report ---
INDICATION: Postmenopausal female. COMPARISON: 04/02/2017. FINDINGS: LT Hip Neck: [BMD (g/cm2): 0.674] [T-Score: -2.6] [Z-Score: -0.3] LT Hip Total: [BMD (g/cm2):0.692] [T-Score:-2.5] [Z-Score: -0.3] [BMD Previous: 0.723] [BMD % Change: -4.3] RT Hip Neck: [BMD (g/cm2):0.717] [T-Score:-2.3] [Z-Score:0.0] RT Hip Total: [BMD (g/cm2):0.732] [T-score:-2.2] [Z-Score:0.0] [BMD Previous:0.754] [BMD % Change:-2.9] *Indicates significant change from prior examination based on 95% confidence level. World Health Organization criteria for BMD interpretation classify patients as Normal (T-score at or above -1.0), Osteopenic (T-score between -1.0 and -2.5) or Osteoporotic (T-score at or below -2.5). LIMITATIONS AND MODIFICATION: The lumbar spine was not evaluated due to reported metal. FRACTURE RISK (FRAX SCORE): Not applicable. IMPRESSION: 1. Osteoporosis. 2. Decrease in bone density does not appear to be statistically significant. 3. See below National Osteoporosis Foundation guidelines on when to potentially initiate pharmacologic therapy. Based on the National Osteoporosis Foundation Guidelines, pharmacologic treatment should be initiated in any of the following, unless clinical conditions suggest otherwise: * Any patient with prior fragility fracture of the hip or vertebrae. A spine fracture indicates 5X risk for subsequent spine fracture and 2X risk for subsequent hip fracture. * Osteoporosis (T-score <-2.5). * Postmenopausal women and men age 50 and older with low bone mass/osteopenia (T-score between -1.0 and -2.5) by DXA and 10-year major osteoporotic fracture greater than 20% or a 10-year probability of hip fracture greater than 3%. These fracture risks are supplied above in the FRAX score, if applicable. * Clinician judgement and/or patient preferences may indicate treatment for people with 10-year fracture probabilities above or below these levels. Dictated by: Dictated on workstation # [id number]
== END ==
LOC: RAD 09:07
PROVIDERS: ATTEND Family Medicine
DX: Z12.31 Encounter for screening mammogram for malignant neoplasm of breast (principal); M85.88 Other specified disorders of bone density and structure, other site; M81.0 Age-related osteoporosis without current pathological fracture; Z78.0 Asymptomatic menopausal state
CPT/HCPCS: 77067; 77080

== ENCOUNTER → 2020-12-03 | Outpatient (CLI) | payer MEDICARE, OTHER ==
[~2020-12-03] MED LIST changes: -MOME15CR17 TP; +MOME15CR8 TP
--- NOTE | 2020-12-03 12:37 | Diagnostic Imaging Report ---
INDICATION: Routine screening. COMPARISON: 11/29/2019 and 11/22/2018. TECHNIQUE: 2D and 3D bilateral screening mammography was performed with CAD. FINDINGS: Both breasts remain heterogeneously dense, limiting the sensitivity of mammography. The circumscribed nodule in the medial right breast appears stable. No spiculated mass or malignant appearing microcalcifications are seen. The axillae are unremarkable. IMPRESSION: No mammographic features suspicious for malignancy are identified. ACR BI-RADS Category 2: Benign findings. Result letter will be mailed to the patient. Note: At least 10% of breast cancer is not imaged by mammography. Dictated by: Dictated on workstation # [id number]
== END ==
LOC: RAD 07:45
PROVIDERS: ATTEND Nurse Practitioner Family
DX: Z12.31 Encounter for screening mammogram for malignant neoplasm of breast (principal)
CPT/HCPCS: 77063; 77067

== ENCOUNTER → 2020-12-11 | Outpatient (CLI) | payer MEDICARE, OTHER ==
--- NOTE | 2020-12-11 08:47 | Diagnostic Imaging Report ---
EXAM: CHEST PA/LAT (2 VIEW) INDICATION: Increased upper back pain. COMPARISON: Chest radiograph 08/29/2020. FINDINGS: Increasing nodular opacity in the right lower lobe measuring at least 1.8 cm. Prominent nipple shadows as were seen on the prior exam. No pleural effusion or pneumothorax. Normal heart size and central pulmonary vascularity. No acute osseous findings. IMPRESSION: Increasing nodular opacity in the right lower lobe. Recommend chest CT for further evaluation. Dictated by: Dictated on workstation # [id number]
== END ==
LOC: RAD 07:50
PROVIDERS: ATTEND Internal Medicine
DX: R91.1 Solitary pulmonary nodule (principal); M54.9 Dorsalgia, unspecified
CPT/HCPCS: 71046

== ENCOUNTER → 2020-12-18 | Outpatient (CLI) | payer MEDICARE, OTHER ==
--- NOTE | 2020-12-18 15:56 | Diagnostic Imaging Report ---
INDICATION: Right lower lobe pulmonary nodule. TECHNIQUE: Serum blood glucose level at the time of injection is 100 mg/dL. Patient was administered 14.1 mCi F-18 FDG intravenously in the right antecubital location and PET imaging was performed from the top of the skull through mid thighs. Noncontrast CT was also performed for attenuation correction and anatomic correlation. COMPARISON: No prior PET/CT studies are available for comparison. Comparison is made with chest radiograph from 12/11/2020. FINDINGS: There is symmetric activity throughout the brain. Soft tissues of the neck are unremarkable. No mediastinal or hilar hypermetabolism is identified. No pulmonary parenchymal hypermetabolism is identified. Specifically, no abnormal activity in the right lower lobe is identified. No nodule on the conventional CT images is identified. Physiologic activity throughout the GI and tracts of the abdomen and pelvis is noted. No suspicious hypermetabolism is identified. IMPRESSION: Unremarkable PET/CT study. No suspicious hypermetabolic focus is identified. Dictated by: Dictated on workstation # [id number]
== END ==
LOC: RAD 08:15
PROVIDERS: ATTEND Internal Medicine
DX: R91.1 Solitary pulmonary nodule (principal)
CPT/HCPCS: 78815; A9552

== ENCOUNTER → 2021-06-12 | Outpatient (CLI) | payer MEDICARE, OTHER ==
[~2021-06-12] MED LIST changes: -OMEP40CA27 PO; +OMEP40CA6 PO
--- NOTE | 2021-06-12 09:58 | Diagnostic Imaging Report ---
CLINICAL INDICATION: Patient has increased low back pain. Patient has history of lumbar surgery in 2006. EXAM: MRI of the lumbar spine performed without IV contrast. Sequences include sagittal T2, sagittal T1, sagittal T2 fat-sat, and axial T2. COMPARISON: None. FINDINGS: Lumbar spine is normal alignment with no acute fracture or dislocation. There is Modic type I degenerative signal changes involving the L2-L3 endplate region. Intraosseous hemangiomas are seen involving the L3 and L5 vertebra. Metallic artifact seen posterior to the L5-S1 level. There is no significant paraspinal fluid collection. There are degenerative spurs and facet arthropathy involving lumbar spine. The visualized portions of the distal thoracic spinal cord, conus medullaris, and cauda equina nerve roots are unremarkable. The conus medullaris tip is seen at the lower L1 vertebral body level. There is prominence of the bilateral renal pelvis with normal caliber of the ureters. This may represent UPJ obstruction, the right side worse than left. Suspected left renal cyst and parapelvic cyst is superimposed upon this finding involving left kidney. T12-L1: Unremarkable. L1-L2: Unremarkable. L2-L3: There is a diffuse disk bulge with moderate loss of disk space height and mild bilateral facet arthropathy. There is no significant central canal narrowing. There is moderate right neural foramen narrowing and [id number] left neural foramen narrowing. L4-L5: There is mild bilateral facet arthropathy. There is mild diffuse disk bulge. There is no significant central canal narrowing. There is moderate bilateral neural foramen narrowing. L5-S1: There is no significant central canal narrowing. There is no significant neural foramen narrowing. IMPRESSION: 1: There are postop changes at L5-S1 level, as described above. 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 This is described in detail above. Dictated by: Dictated on workstation # [id number]
== END ==
LOC: RAD 08:45
PROVIDERS: ATTEND Physician Assistant
DX: M47.816 Spondylosis without myelopathy or radiculopathy, lumbar region (principal); M51.26 Other intervertebral disc displacement, lumbar region; M51.36 Other intervertebral disc degeneration, lumbar region; M48.061 Spinal stenosis, lumbar region without neurogenic claudication; Z98.890 Other specified postprocedural states
CPT/HCPCS: 72148

== ENCOUNTER → 2021-12-10 | Outpatient (CLI) | payer MEDICARE, OTHER ==
--- NOTE | 2021-12-10 09:57 | Diagnostic Imaging Report ---
INDICATION: Postmenopausal recheck. History of osteoporosis COMPARISON: 11/29/2019 FINDINGS: AP Spine L1-L4: [BMD (g/cm2): NA] [T-Score: NA] [Z-Score: NA] [BMD Previous: NA] [BMD % Change: NA] LT Hip Neck: [BMD (g/cm2): 0.653] [T-Score: -2.8] [Z-Score: -0.4] LT Hip Total: [BMD (g/cm2):0.678] [T-Score:-2.6] [Z-Score: -0.4] [BMD Previous: 0.692] [BMD % Change: -2.0] RT Hip Neck: [BMD (g/cm2):0.668] [T-Score:-2.7] [Z-Score:-0.3] RT Hip Total: [BMD (g/cm2):0.675] [T-score:-2.6] [Z-Score:-0.4] [BMD Previous:0.732] [BMD % Change:-7.8] *Indicates significant change from prior examination based on 95% confidence level. World Health Organization criteria for BMD interpretation classify patients as Normal (T-score at or above -1.0), Osteopenic (T-score between -1.0 and -2.5) or Osteoporotic (T-score at or below -2.5). LIMITATIONS AND MODIFICATION: None. FRACTURE RISK (FRAX SCORE): The ten year probability of (%): Major Osteoporotic Fracture: [18.6] Hip Fracture: [7.3] IMPRESSION: 1. Osteoporotic 2. mild interval worsening 3. See below National Osteoporosis Foundation guidelines on when to potentially initiate pharmacologic therapy. Based on the National Osteoporosis Foundation Guidelines, pharmacologic treatment should be initiated in any of the following, unless clinical conditions suggest otherwise: * Any patient with prior fragility fracture of the hip or vertebrae. A spine fracture indicates 5X risk for subsequent spine fracture and 2X risk for subsequent hip fracture. * Osteoporosis (T-score <-2.5). * Postmenopausal women and men age 50 and older with low bone mass/osteopenia (T-score between -1.0 and -2.5) by DXA and 10-year major osteoporotic fracture greater than 20% or a 10-year probability of hip fracture greater than 3%. These fracture risks are supplied above in the FRAX score, if applicable. * Clinician judgement and/or patient preferences may indicate treatment for people with 10-year fracture probabilities above or below these levels. Dictated by: Dictated on workstation # [id number]
--- NOTE | 2021-12-10 14:27 | Diagnostic Imaging Report ---
INDICATION: Routine screening. COMPARISON is made with prior mammograms from 12/03/2020 and 11/29/2019. 2-D and 3-D bilateral screening mammography was performed with CAD. Both breasts are heterogeneously dense, limiting the sensitivity of mammography. The previously noted circumscribed nodule in the medial right breast appears stable. No new mass or malignant-appearing microcalcifications are seen. There are occasional benign calcifications. Axillae are unremarkable. IMPRESSION: BI-RADS Category 2 No mammographic features suspicious for malignancy are identified. ACR BI-RADS Category 2: Benign findings. Result letter will be mailed to the patient. Note: At least 10% of breast cancer is not imaged by mammography. Dictated by: Dictated on workstation # [id number]
== END ==
LOC: RAD 08:30
PROVIDERS: ATTEND Nurse Practitioner Family
DX: Z12.31 Encounter for screening mammogram for malignant neoplasm of breast (principal); M81.0 Age-related osteoporosis without current pathological fracture; N95.9 Unspecified menopausal and perimenopausal disorder
CPT/HCPCS: 77063; 77067; 77080

== ENCOUNTER → 2022-04-08 | Outpatient (CLI) | payer MEDICARE, OTHER ==
--- NOTE | 2022-04-08 12:25 | Diagnostic Imaging Report ---
PROCEDURE: CT head without contrast. TECHNIQUE: Multiple contiguous axial images were obtained through the brain without the use of intravenous contrast. Auto Exposure Controls were utilized during the CT exam to meet ALARA standards for radiation dose reduction. INDICATION: Severe headache COMPARISON: 12/08/2013 FINDINGS: Ventricles and sulci are within normal limits for size. There is no evidence of acute hemorrhage. There is no abnormal mass effect or shift of midline structures. No geographic low density is seen to indicate an acute infarct. Calvarium is intact. There is material present within the left external auditory canal which could be related to cerumen or other debris. IMPRESSION: No CT evidence of acute intracranial abnormality. Note is made of cerumen or debris within the left external auditory canal. Dictated by: Dictated on workstation # [id number]
== END ==
LOC: RAD 11:57
PROVIDERS: ATTEND Internal Medicine
DX: R51.9 Headache, unspecified (principal)
CPT/HCPCS: 70450

== ENCOUNTER → 2022-12-11 | Outpatient (CLI) | payer MEDICARE, OTHER ==
--- NOTE | 2022-12-11 11:39 | Diagnostic Imaging Report ---
Indication: Routine screening. Comparison is made with prior mammograms from 12/10/2021 and 12/03/2020. 2-D and 3-D bilateral screening mammography was performed with CAD. Both breasts are heterogeneously dense, limiting the sensitivity of mammography. A benign-appearing nodule in the medial right breast is stable. No new mass or malignant-appearing microcalcifications are seen. Axillae are unremarkable. IMPRESSION: BI-RADS Category 2 No mammographic features suspicious for malignancy are identified. ACR BI-RADS Category 2: Benign findings. Result letter will be mailed to the patient. Note: At least 10% of breast cancer is not imaged by mammography. Dictated by: Dictated on workstation # [id number]
== END ==
LOC: RAD 06:55
PROVIDERS: ATTEND Internal Medicine
DX: Z12.31 Encounter for screening mammogram for malignant neoplasm of breast (principal)
CPT/HCPCS: 77063; 77067